=== PATIENT | female | born 1965 | race Two or more races ===

== ENCOUNTER 2020-08-06 01:31 | Emergency (ER) | payer OTHER, SELFPAY | END 2020-08-06 03:00 | disposition left against medical advice (07) | PROVIDERS: Emergency Provider Emergency Medicine; PCP Internal Medicine | DX: M79.676 Pain in unspecified toe(s) (principal) ==

== ENCOUNTER 2020-08-06 15:59 | Outpatient (REF) | payer OTHER, SELFPAY ==
--- NOTE | ~2020-08-06 | XR_ITS ---
EXAMINATION: XR FOOT, LEFT CLINICAL INFORMATION: Toe pain. COMPARISON: None TECHNIQUE: AP, lateral, and oblique views of the left foot. FINDINGS: There is no acute fracture or dislocation. The tarsal bones are normally aligned. Very small plantar and retrocalcaneal spurs are seen. There is mild soft tissue swelling. XR/XR foot LT 2V IMPRESSION: Very small degenerative calcaneal spurs and mild soft tissue swelling without acute osseous abnormality.
== END 2020-08-06 16:00 | disposition home or self-care (01) ==
LOC: HO.XRAY 15:59
PROVIDERS: PCP Internal Medicine; Visit Provider Family Medicine
DX: M79.675 Pain in left toe(s) (principal)
CPT/HCPCS: 73620

== ENCOUNTER 2020-08-13 13:20 | Outpatient (REF) | payer OTHER, SELFPAY ==
--- NOTE | ~2020-08-13 | XR_ITS ---
EXAMINATION: XR ABDOMEN KUB CLINICAL INDICATION: Abdominal pain COMPARISON: CT June 2013 TECHNIQUE: AP view of the abdomen. FINDINGS: The bowel gas pattern is normal. There is no evidence of free air. There is question of a 1.5 cm calcification in the right upper quadrant overlying the 11th rib. This is suggestive of a couple gallstone. No gallstone is seen on CT from 2013. Bony structures are unremarkable. XR/XR KUB IMPRESSION: Normal bowel gas pattern. Question gallstone.
[2020-08-13 14:41] LABS: Glucose Urine UA NEG (NEG); Leukocyte Esterase Urine TRACE (NEG); Nitrite Urine NEG (NEG); PH 8.5 (5.0-8.0); UACC Culture Trigger YES; Urine Blood NEG (NEG); Urine Ketones NEG (NEG); Urine Protein NEG (NEG-TRACE)
[2020-08-13 14:50] LABS: Appearance Urine CLOUDY; Color Urine YELLOW
[2020-08-13 15:09] LABS: Amorphous Sediment Urine 2+ /LPF; RBC Urine 0 /HPF (0)
[2020-08-19 12:02] LABS: Vitamin D 25-OH, D2 <4 ng/mL; Vitamin D 25-OH, D3 29 ng/mL; Vitamin D 25-OH, Total 29 ng/mL (30-100)
== END 2020-08-13 13:21 | disposition home or self-care (01) ==
LOC: HO.LAB 13:20
PROVIDERS: PCP Internal Medicine; Visit Provider Internal Medicine
DX: R10.9 Unspecified abdominal pain (principal); E55.9 Vitamin D deficiency, unspecified; R30.0 Dysuria
CPT/HCPCS: 36415; 74018; 81001; 81003; 82306; 87086

== ENCOUNTER 2020-11-29 05:20 | Emergency (ER) | payer OTHER, SELFPAY ==
[2020-11-29 05:25] VITALS: BP 149/83; PULSE 83; RESP 16; TEMP 36.4; O2SAT 99; BMI 30.8
[2020-11-29 06:12] LABS: Glucose Urine UA NEG (NEG); Leukocyte Esterase Urine 1+ (NEG); Nitrite Urine NEG (NEG); UACC Culture Trigger YES; Urine Blood 3+ (NEG); Urine Ketones NEG (NEG); Urine Protein 2+ MG/DL (NEG-TRACE)
[2020-11-29 06:15] LABS: Appearance Urine CLOUDY
[2020-11-29 06:16] LABS: Color Urine RED
[2020-11-29 06:17] LABS: Bacteria Urine 1+ /LPF; RBC Urine TNTC /HPF (0); Squamous Epithelial Cell Urine 1+ /LPF; UACC CULT YES
--- NOTE | 2020-11-29 06:19 | PC.NURSE ---
at bedside for primary eval.
--- NOTE | 2020-11-29 06:50 | PC.NURSE ---
Patient is ambulatory to the bathroom and back without difficulty. Pt rates lower abdominal pain 4/10 currently. No acute distress noted.
--- NOTE | 2020-11-29 07:25 | PC.NURSE ---
Dischrarge instructions given to patient who verbalized understanding and denies any questions. Pt is ambulatory to exit in no acute distress
--- NOTE | 2021-02-09 06:45 | ED.FEMALEGU ---
HPI - Female Genitourinary General Chief complaint: Urogenital-Female Stated complaint: Blood in urine Time Seen by Provider: 11/29/20 06:17 Related Data Previous Rx's Medication Instructions Recorded cholecalciferol (vitamin D3) 25 25 mcg PO DAILY 90 Days #90 cap 12/09/20 mcg (1,000 unit) capsule fluticasone propionate 50 1 spray INTRANASAL DAILY 30 Days 12/09/20 mcg/actuation nasal #16 g spray,suspension gabapentin 400 mg capsule 400 mg PO BID 30 Days #60 cap 12/09/20 gabapentin 600 mg tablet 600 mg PO BEDTIME 30 Days #30 tab 12/09/20 loratadine 10 mg tablet 10 mg PO DAILY 90 Days #90 tab 12/09/20 sennosides 8.6 mg tablet 17.2 mg PO DAILY 90 Days #180 tab 12/09/20 topiramate 50 mg tablet 50 mg PO BEDTIME 90 Days #90 tab 12/09/20 duloxetine 30 mg capsule,delayed 30 mg PO DAILY 90 Days #90 cap 12/11/20 release Allergies Allergy/AdvReac Type Severity Reaction Status Date / Time pregabalin Allergy Intermediate mood Verified 12/09/20 09:22 behavior, blurry vision, dizziness, insomnia sumatriptan Allergy Intermediate nausea Verified 12/09/20 09:22 [facility] Past Medical History Medical History (Updated 12/09/20 @ 10:32 by Sarah Ortiz MD) Bilateral flank pain Constipation by delayed colonic transit Cough Electrocution and nonfatal effects of electric current Fibromyalgia Hypovitaminosis D Macroscopic hematuria Migraine Obesity Skin lesion Surgical History History of carpal tunnel release History of section History of hysterectomy Family History Family History Father Prostate cancer Mother No problems noted. Social History Social History Housing: Apartment Alcohol intake: never Patient Tobacco Use Status: Never used Tobacco e-Cigarette/Vaping Use: Never Used Second Hand Smoke Exposure: Yes service: No Current occupational status: employed Physical Exam Vital Signs: Vital Signs: Last Vital Signs Temp 97.6 F 11/29/20 05:25 Pulse 83 11/29/20 05:25 Resp 16 11/29/20 05:25 BP 149/83 H 11/29/20 05:25 Pulse Ox 99 11/29/20 05:25 Body Mass Index 30.8 MDM - Female Genitourinary Lab Data Labs: Lab Results 11/29/20 Range/Units 05:46 Urine Color RED Urine Appearance CLOUDY Urine pH 6.0 (5.0-8.0) Ur Specific [place] 1.020 (1.005-1.025) Urine Protein 2+ H (NEG-TRACE) MG/DL Urine Glucose (UA) NEG (NEG) MG/DL Urine Ketones NEG (NEG) MG/DL Urine Blood 3+ H (NEG) Urine Nitrite NEG (NEG) Ur Leukocyte Esterase 1+ H (NEG) Urine RBC TNTC H (0) /HPF Urine WBC 5-9 H (0-4) /HPF Ur Squamous Epith Cells 1+ /LPF Urine Bacteria 1+ /LPF Discharge Plan Discharge Clinical Impression: UTI (urinary tract infection), Abdominal pain Patient Disposition: Home, Self-Care Instructions: Urinary Tract Infection in Women (ED) Additional Instructions: Your symptoms and urinalysis are consistent with a urine infection, most likely the infection is in your bladder at this time. Take Keflex (cephalexin) 500 mg pills, 1 pill 3 times a day for 7 days. Take Pyridium 200 mg pills, 1 pill 3 times a day as needed for painful urination. Take ibuprofen 200 mg pills, 3 pills every 6 hours as needed for pain. Take Tylenol (acetaminophen) 500 mg pills, 2 pills every 4 to 6 hours as needed for pain. Follow-up with your doctor in 2 days. Please return to the emergency department if your symptoms get worse or if you develop any symptoms that are concerning to you. Prescriptions: No Action duloxetine 30 mg capsule,delayed release(DR/EC) 30 mg PO DAILY 90 Days Qty: 90 RF: 1 cholecalciferol (vitamin D3) 25 mcg (1,000 unit) capsule 25 mcg PO DAILY 90 Days Qty: 90 RF: 3 fluticasone propionate 50 mcg/actuation spray,suspension 1 spray intranasal DAILY 30 Days Qty: 16 RF: 6 gabapentin 600 mg tablet 600 mg PO BEDTIME 30 Days Qty: 30 RF: 3 gabapentin 400 mg capsule 400 mg PO BID 30 Days Qty: 60 RF: 6 topiramate 50 mg tablet 50 mg PO BEDTIME 90 Days Qty: 90 RF: 3 sennosides 8.6 mg tablet 17.2 mg PO DAILY 90 Days Qty: 180 RF: 3 loratadine 10 mg tablet 10 mg PO DAILY 90 Days Qty: 90 RF: 1 Discharge Date/Time: 11/29/20 07:25
== END 2020-11-29 07:25 | disposition home or self-care (01) ==
PROVIDERS: Emergency Provider Emergency Medicine Emergency Medical Services; PCP Internal Medicine
DX: N39.0 Urinary tract infection, site not specified (principal)
CPT/HCPCS: 81001; 87086; 87088; 87186; 99283; 99284

== ENCOUNTER 2020-12-09 10:01 | Outpatient (REF) | payer OTHER, SELFPAY ==
--- NOTE | ~2020-12-09 | XR_ITS ---
EXAMINATION: XR CHEST CLINICAL INFORMATION: Cough COMPARISON: 12/02/2018 TECHNIQUE: 2 views of the chest were obtained. FINDINGS: No significant abnormality is noted involving the heart, lungs, mediastinum, bony thorax or soft tissues. XR/XR chest 2V IMPRESSION: Unremarkable examination.
[2020-12-09 11:49] LABS: Thyroid Stimulating Hormone 2.37 uIU/mL (0.32-4.0)
[2020-12-13 15:07] LABS: Vitamin D 25-OH, D2 <4 ng/mL; Vitamin D 25-OH, D3 31 ng/mL; Vitamin D 25-OH, Total 31 ng/mL (30-100)
== END 2020-12-09 10:02 | disposition home or self-care (01) ==
LOC: HO.LAB 10:01
PROVIDERS: PCP Internal Medicine; Visit Provider Internal Medicine
DX: R05 Cough (principal); E55.9 Vitamin D deficiency, unspecified; E66.9 Obesity, unspecified
CPT/HCPCS: 36415; 71046; 82306; 84443

== ENCOUNTER → 2021-02-14 13:08 | Outpatient (BNVA) | payer OTHER, SELFPAY | PROVIDERS: PCP Internal Medicine | DX: R31.0 Gross hematuria (principal); R39.15 Urgency of urination | CPT/HCPCS: 99202 ==

== ENCOUNTER 2021-03-17 12:36 | Outpatient (REF) | payer OTHER, SELFPAY ==
--- NOTE | ~2021-03-17 | US_ITS ---
EXAMINATION: US RETROPERITONEAL LIMITED (RENAL ONLY) CLINICAL INFORMATION: Unspecified abdominal pain. COMPARISON: X-ray abdomen KUB 08/13/2020. CT abdomen and pelvis 06/03/2013. TECHNIQUE: Real-time imaging of the kidneys. FINDINGS: RIGHT KIDNEY: 10.3 x 3.9 x 4.8 cm (SAG x AP x TRV). The kidney is normal in size, contour, and echogenicity. Renal cortical thickness is normal. No calculi or focal parenchymal lesions. No hydronephrosis. LEFT KIDNEY: 10.5 x 5.8 x 4.0 cm (SAG x AP x TRV). The kidney is normal in size, contour, and echogenicity. Renal cortical thickness is normal. No focal parenchymal lesions or hydronephrosis. There appears to be a small, 0.3 cm calculus in the upper pole (image 22 of 29). US/US renal BI IMPRESSION: * No acute sonographic abnormalities in either kidney. No hydronephrosis. * There appears to be a small, 0.3 cm calculus in the upper pole of left kidney.
== END 2021-03-17 12:37 | disposition home or self-care (01) ==
LOC: HO.US 12:36
PROVIDERS: Visit Provider Urology
DX: N20.0 Calculus of kidney (principal)
CPT/HCPCS: 76775

== ENCOUNTER → 2021-03-21 15:06 | Outpatient (BNVA) | payer OTHER, SELFPAY | PROVIDERS: PCP Internal Medicine | DX: K59.01 Slow transit constipation (principal); N20.0 Calculus of kidney; R39.15 Urgency of urination; R31.0 Gross hematuria | CPT/HCPCS: 99212 ==

== ENCOUNTER → 2021-06-20 11:15 | Outpatient (BNVA) | payer OTHER, SELFPAY | PROVIDERS: PCP Internal Medicine ==

== ENCOUNTER → 2021-10-24 11:21 | Outpatient (REF) | payer OTHER, SELFPAY ==
--- NOTE | ~2021-10-24 | XR_ITS ---
EXAMINATION: XR SHOULDER, LEFT CLINICAL INFORMATION: M25.512 - Pain in left shoulder COMPARISON: None TECHNIQUE: Left shoulder is imaged in 4 views. FINDINGS: No fracture, dislocation, destructive process. The glenohumeral joint is normal. The acromioclavicular alignment is normal. There are no visible rotator cuff calcifications. XR/XR shoulder LT min 2V IMPRESSION: Normal left shoulder.
--- NOTE | 2021-10-24 11:29 | ECG_ITS ---
Test Reason : R94.31 Blood Pressure : / mmHG Vent. Rate : 074 BPM Atrial Rate : 074 BPM P-R Int : 128 ms QRS Dur : 084 ms QT Int : 360 ms P-R-T Axes : 036 065 059 degrees QTc Int : 399 ms Normal sinus rhythm Minimal voltage criteria for LVH, may be normal variant ( Sokolow-Couch ) Borderline ECG When compared with ECG of 02-DEC-2018 14:46, No significant change was found Referred By: Sarah Ortiz Electronically Signed By:RICCARDO FALK
== END ==
LOC: HO.CARD 11:21
PROVIDERS: PCP Internal Medicine; Visit Provider Internal Medicine
DX: R94.31 Abnormal electrocardiogram [ECG] [EKG] (principal); M25.512 Pain in left shoulder
CPT/HCPCS: 73030; 93005

== ENCOUNTER 2021-11-08 10:20 | Outpatient (REF) | payer OTHER, SELFPAY ==
--- NOTE | ~2021-11-08 | US_ITS ---
EXAMINATION: US RETROPERITONEAL LIMITED (RENAL ONLY) CLINICAL INFORMATION: Calculus of kidney. COMPARISON: US retroperitoneal limited (renal only) 03/17/2021. CT abdomen and pelvis without contrast 06/03/2013. TECHNIQUE: Real-time imaging of the kidneys. FINDINGS: RIGHT KIDNEY: 10.5 x 4.4 x 4.9 cm (SAG x AP x TRV). The kidney is normal in size, contour, and echogenicity. Renal cortical thickness is normal. No calculi or focal parenchymal lesions. No hydronephrosis. LEFT KIDNEY: 11.0 x 6.1 x 4.9 cm (SAG x AP x TRV). The kidney is normal in size, contour, and echogenicity. Renal cortical thickness is normal. No calculi or focal parenchymal lesions. No hydronephrosis. ADDITIONAL FINDINGS: Incidentally noted cholelithiasis without evidence of acute cholecystitis. US/US renal BI IMPRESSION: Previously seen left upper pole renal stone is no longer appreciated sonographically. Cholelithiasis incidentally noted without findings to suggest acute cholecystitis.
== END 2021-11-08 10:21 | disposition home or self-care (01) ==
LOC: HO.US 10:20
DX: N20.0 Calculus of kidney (principal)
CPT/HCPCS: 76775

== ENCOUNTER → 2021-12-19 11:19 | Outpatient (BNVA) | payer OTHER, SELFPAY | PROVIDERS: PCP Internal Medicine | DX: N20.0 Calculus of kidney (principal); R39.15 Urgency of urination; N39.0 Urinary tract infection, site not specified; Z79.899 Other long term (current) drug therapy | CPT/HCPCS: 99212 ==

== ENCOUNTER 2022-01-09 13:54 | Outpatient (REF) | payer OTHER, SELFPAY ==
--- NOTE | ~2022-01-09 | US_ITS ---
EXAMINATION: US PELVIS CLINICAL INFORMATION: Pelvic and perineal pain COMPARISON: None TECHNIQUE: Ultrasound of the pelvis is performed using both transabdominal and transvaginal transducers along with Doppler. Transvaginal imaging is performed due to inadequate visualization transabdominally. FINDINGS: The uterus is not visualized due to surgical resection. Adnexa: Both ovaries are nonvisualized. There is no free fluid in the cul-de-sac. US/US pelvic and transvaginal IMPRESSION: Both ovaries are not visualized. The uterus has been removed. There is no adnexal mass or free fluid.
== END 2022-01-09 13:55 | disposition home or self-care (01) ==
LOC: HO.HMGCX 13:54
PROVIDERS: Visit Provider Nurse Practitioner Family
DX: R10.2 Pelvic and perineal pain (principal)
CPT/HCPCS: 76830; 76856

== ENCOUNTER 2022-09-04 10:58 | Outpatient (REF) | payer OTHER, SELFPAY ==
[2022-09-04 13:34] LABS: Alanine Aminotransferase 18 U/L (0-31); Albumin Level 4.1 g/dL (3.5-5.0); Alkaline Phosphatase 88 U/L (39-117); Anion Gap 12 (12-20); Aspartate Amino Transferase 21 U/L (5-31); Bilirubin Total 0.4 mg/dL (0.0-1.0); Blood Urea Nitrogen 16 mg/dL (9-16); Calcium 9.2 mg/dL (8.4-10.2); Carbon Dioxide 28 mmol/L (22-29); Chloride 108 mmol/L (96-108); Cholesterol 192 mg/dL; Estimated Glomerular Filt Rate > 60; Glucose Fasting 82 mg/dL (60-99); HDL Cholesterol 58 mg/dL; LDL Cholesterol Calculated 111 mg/dl; Potassium 4.6 mmol/L (3.3-5.1); Sodium 143 mmol/L (135-145); Total Protein 6.8 g/dL (6.5-8.0); Triglycerides 119 mg/dL
[2022-09-04 13:47] LABS: TSH reflex Free T4 2.12 uIU/mL (0.32-4.0); Vitamin D 25-OH Total 18.4 ng/mL (>30)
== END 2022-09-04 10:59 | disposition home or self-care (01) ==
LOC: HO.LAB 10:58
PROVIDERS: PCP Nurse Practitioner Family; Visit Provider Nurse Practitioner Family
DX: G43.909 Migraine, unspecified, not intractable, without status migrainosus (principal); F33.0 Major depressive disorder, recurrent, mild; M79.7 Fibromyalgia
CPT/HCPCS: 36415; 80053; 80061; 82306; 84443

== ENCOUNTER 2022-12-01 12:40 | Outpatient (REF) | payer OTHER, SELFPAY ==
--- NOTE | ~2022-12-01 | MM_ITS ---
EXAMINATION: BONE DENSITOMETRY CLINICAL INDICATION: Menopause. COMPARISON: None (current study represents initial baseline exam). TECHNIQUE: Using a [employer] DXA System (software version: 13.1) manufactured by [employer], dual-energy x-ray absorptiometry was performed of the lumbar spine and left hip. The images are of good technical quality. Summary results are attached. FINDINGS: AP SPINE L1-L4: BMD 1.024 g/cm2, Z-score -0.7, T-score -1.3, osteopenia. LEFT FEMUR, NECK: BMD 0.847 g/cm2, Z-score -0.5, T-score -1.4, osteopenia. LEFT FEMUR, TOTAL: BMD 0.923 g/cm2, Z-score -0.2, T-score -0.7, normal. IDENTIFIED RISK FACTORS: Early menopause, hysterectomy, secondary osteoporosis, anticonvulsant. HISTORY OF FRACTURE: None listed. MEDICATIONS: Vitamin D. MM/XR DEXA axial skeleton IMPRESSION: 1. DIAGNOSIS: Osteopenia based on the lowest T-score value of -1.4 in the femoral neck applying World Health Organization criteria. 2. 10-YEAR FRACTURE RISK PREDICTION, FRAX: Major osteoporotic fracture (clinical spine, forearm, hip or shoulder) 3.6%. Hip fracture 0.3%. 3. Treatment Recommendations: NOF guidelines recommend consideration for treatment in postmenopausal women and men age 50 and older presenting with the following: -A hip or vertebral (clinical or morphometric) fracture. -T-score less than or equal to -2.5 at the femoral neck or spine after appropriate evaluation to exclude secondary causes. -Low bone mass at the hip or spine and a 10-year fracture probability by FRAX of greater than or equal to 3% for hip fracture or greater than or equal to 20% for major osteoporotic fracture based on the [place] adapted WHO algorithm. 4. Other Recommendations: All treatment decisions require clinical judgment and consideration of individual patient factors, including patient preferences, comorbidities, previous drug use, risk factors not captured in the FRAX model (e.g. frailty, falls, vitamin D deficiency, increased bone turnover, interval significant decline in bone density) and possible under or overestimation of fracture risk by FRAX. Additional medical evaluation for secondary cause of low bone mineral density may be appropriate. FUTURE SCAN RECOMMENDATION: People with diagnosed cases of osteoporosis or at high risk for fracture should have regular bone mineral density tests. For patients eligible for Medicare, routine testing is allowed once every 2 years. The testing frequency can be increased to one year for patients who have rapidly progressing disease, those who are receiving or discontinuing medical therapy to restore bone mass, or have additional risk factors.
--- NOTE | ~2022-12-01 | MM_ITS ---
EXAMINATION: MM SCREENING DIGITAL BREAST TOMOSYNTHESIS, BILATERAL CLINICAL INFORMATION: Screening. Asymptomatic. The lifetime risk of breast cancer based on the Tyrer-Cuzick Model is 5%. COMPARISON: Mammography: 07/29/2018, 07/09/2017, 07/22/2015 TECHNIQUE: Digital breast tomosynthesis is performed in both the craniocaudal and mediolateral oblique views along with computer-aided detection (CAD). Synthesized 2D images are generated from the tomosynthesis. FINDINGS: There are scattered areas of fibroglandular density (ACR BI-RADS breast composition Category b). There are no significant masses, abnormal calcifications, or other abnormalities. Parenchymal pattern is similar to prior studies. There is no developing density or architectural abnormality. The axilla and skin contours are unremarkable. No significant changes. MM/MM tomosynthesis screening BI IMPRESSION: No mammographic evidence of malignancy. ASSESSMENT: BI-RADS 1: Negative RECOMMENDATION: Routine annual mammography screening. This patient's information was entered into a reminder system with a target due date for their next mammogram.
== END 2022-12-01 12:41 | disposition home or self-care (01) ==
LOC: HO.MAMMO 12:40
PROVIDERS: PCP Internal Medicine; Visit Provider Internal Medicine
DX: Z12.31 Encounter for screening mammogram for malignant neoplasm of breast (principal); Z13.820 Encounter for screening for osteoporosis; Z78.0 Asymptomatic menopausal state
CPT/HCPCS: 77063; 77067; 77080

== ENCOUNTER 2022-12-07 14:55 | Outpatient (REF) | payer OTHER, SELFPAY ==
--- NOTE | ~2022-12-07 | US_ITS ---
EXAMINATION: US RETROPERITONEAL LIMITED (RENAL ONLY) CLINICAL INFORMATION: Gross hematuria. COMPARISON: Ultrasound retroperitoneal limited (renal only) 11/08/2021 and 03/17/2021. X-ray abdomen KUB 08/13/2020. CT abdomen and pelvis without contrast 06/03/2013. TECHNIQUE: Real-time imaging of the kidneys. FINDINGS: RIGHT KIDNEY: 10.5 x 4.7 x 5.0 cm (SAG x AP x TRV). The kidney is normal in size, contour, and echogenicity. Renal cortical thickness is normal. No calculi or focal parenchymal lesions. No hydronephrosis. LEFT KIDNEY: 10.2 x 5.8 x 5.0 cm (SAG x AP x TRV). The kidney is normal in size, contour, and echogenicity. Renal cortical thickness is normal. No calculi or focal parenchymal lesions. No hydronephrosis. US/US renal BI IMPRESSION: Unremarkable examination.
== END 2022-12-07 14:56 | disposition home or self-care (01) ==
LOC: HO.US 14:55
PROVIDERS: PCP Internal Medicine; Visit Provider Nurse Practitioner Family
DX: R10.9 Unspecified abdominal pain (principal); R31.0 Gross hematuria
CPT/HCPCS: 76775

== ENCOUNTER → 2022-12-19 11:07 | Outpatient (BNVA) | payer OTHER, SELFPAY | PROVIDERS: PCP Internal Medicine; Visit Provider Nurse Practitioner Family | DX: R39.15 Urgency of urination (principal); N20.0 Calculus of kidney | CPT/HCPCS: 51798; 99212 ==

== ENCOUNTER 2023-03-12 08:02 | Outpatient (AMB) | payer OTHER, SELFPAY ==
--- NOTE | 2023-03-12 08:15 | A.OFFPC_ITS ---
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 Required: No Accompanied by: Self / Same As Patient Allergies pregabalin Allergy (Intermediate, Verified 03/12/23 08:31) mood behavior, blurry vision, dizziness, insomnia sumatriptan Allergy (Intermediate, Verified 03/12/23 08:31) nausea duloxetine Adverse Reaction (Intermediate, Verified 03/12/23 08:31) sleepiness Medication List - Last Reconciled 03/12/23 by Sarah Ortiz MD amitriptyline 25 mg PO BEDTIME 90 days calcium carbonate 600 mg PO BID 90 days cholecalciferol (vitamin D3) 25 mcg PO DAILY 90 days cyclobenzaprine 5 mg PO TID PRN estradiol 0.01%(0.1mg/gram) (Estrace) pea sized amount per urethra daily; fluticasone propionate 50 mcg/actuation 1 spray intranasal DAILY 30 days gabapentin 400 mg PO BID 30 days gabapentin 600 mg PO BEDTIME 90 days lidocaine-prilocaine 2.5-2.5 % grams topical loratadine 10 mg PO DAILY 90 days mirabegron ER (Myrbetriq) 25 mg PO DAILY 30 days naproxen 500 mg PO BID sennosides 17.2 mg (2 x 8.6 mg) PO DAILY 90 days topiramate 50 mg PO BEDTIME Tobacco use date assessed: 09/07/22 Dental Screening Dental Screen Date: 03/12/23 Did you have a dental visit in the last 12 months?: Yes Did you have a dental problem in the last 6 months where you did not have access to dental care?: No Was dental information given to patient?: Patient has dentist HPI HPI Comments History of Present Illness Details This is a 57-year-old female with fibromyalgia, migraines, mild major depression and osteopenia that comes today for follow-up on her conditions. She did run out of gabapentin 400 mg twice a day and has more pain. Migraines have been well control with Topamax as migraine prophylaxis. She does not use amitriptyline every day and I recommend to use it every day at bedtime. She still has trouble sleeping. Had bone density November 2022 showing osteopenia and calcium with vitamin-D was started. She has some constipation secondary to calcium and I advised high-fiber diet. No chest pain or shortness of breath. [facility] Medical History (Updated 03/12/23 @ 09:15 by Sarah Ortiz MD) Left shoulder pain Mild recurrent major depression Class 1 obesity with body mass index (BMI) of 31.0 to 31.9 in adult Pelvic pain in female Urinary urgency Constipation by delayed colonic transit Macroscopic hematuria Cough Obesity Electrocution and nonfatal effects of electric current Fibromyalgia Skin lesion Bilateral flank pain Migraine Hypovitaminosis D Surgical History History of carpal tunnel release History of section History of hysterectomy Family History Father Prostate cancer Mother No problems noted. Social History Housing: Apartment Alcohol intake: never Patient Tobacco Use Status: Never used Tobacco e-Cigarette/Vaping Use: Never Used Second Hand Smoke Exposure: Yes service: No Current occupational status: employed Current occupational exposures/hazards: No Cognitive needs: No Hearing needs: No Vision needs: Yes Questionnaire Thrive Questionnaire Date Thrive assessed: 09/07/22 KUMAR-7 AMB Questionnaire KUMAR-7 Date KUMAR - 7 assessed: 10/24/21 Source: Developed by Drs. Wander Arnold, Samara Mayer, Rudolph Lovelace and colleagues, with an educational marsha from [employer]. Review of Systems Const All systems reviewed & are unremarkable except as noted in HPI and below Eyes Reports no additional complaints, Denies change in vision and Denies other visual disturbances Card Denies chest pain at rest, Denies chest pain with activity, Denies edema, Denies irregular heart rhythm, Denies claudication, Denies dyspnea, Denies dyspnea on exertion, Denies orthopnea, Denies paroxysmal nocturnal dyspnea and Denies slow heart rate Resp Denies cough, Denies dyspnea and Denies dyspnea on exertion GI Denies abdominal pain, Denies change in bowel habits, Denies excessive flatus, Denies nausea and Denies vomiting Denies urinary incontinence, Denies urinary hesitancy and Denies urinary urgency Musc Denies abnormal gait, Denies atrophy, Denies deformity and Denies limited range of motion Skin/Breast Denies bleeding lesions, Denies changing lesions and Denies rash Neuro Denies abnormal gait and Denies lack of coordination Physical exam (Primary Care) Vital Signs: Last Vital Signs BP 120/70 03/12/23 08:16 BMI result Body Mass Index 29.2 Tobacco/Smoking Status: Tobacco use Status Tobacco use date assessed 09/07/22 03/12/23 08:22 Patient Tobacco Use Status Never used Tobacco 03/12/23 08:22 e-Cigarette/Vaping Use Never Used 03/12/23 08:22 Thrive Assessment: Date of Thrive Assessment Date Thrive assessed 09/07/22 03/12/23 08:22 Eyes General: appearance normal, both eyes and all related structures Eyelids: Yes eyelids normal Conjunctivae: conjunctivae normal Neck Neck: Yes normal visual inspection and Yes supple Resp Effort & Inspection: normal respiratory effort Auscultation: clear to auscultation bilaterally Cardio Jugular venous distension: no JVD Rate: regular rate Rhythm: regular rhythm Heart sounds: S1 normal heart sound present and S2 normal heart sound present Extrem General: Yes full ROM Assessment and Plan Assessment & Plan (1) Fibromyalgia: Code(s): M79.7 - Fibromyalgia Plan: Continue gabapentin 400 mg at am and 600 at bedtime. (2) Migraine: Code(s): G43.909 - Migraine, unspecified, not intractable, without status migrainosus Qualifiers: Migraine type: unspecified Status migrainosus presence: without status migrainosus Intractability: not intractable Qualified Code(s): G43.909 - Migraine, unspecified, not intractable, without status migrainosus Plan: Continue Topamax at bedtime. (3) Osteopenia: Code(s): M85.80 - Other specified disorders of bone density and structure, unspecified site Plan: Continue calcium with vitamin-D. (4) Mild recurrent major depression: Code(s): F33.0 - Major depressive disorder, recurrent, mild Plan: Be compliant with amitriptyline. Orders: Orders Lipid Panel 6 Months E78.5 - Hyperlipidemia, unspecified, Z00.00 - Encounter for general adult medical examination without abnormal findings Comprehensive [place]. Panel Fast 6 Months Z00.00 - Encounter for general adult medical examination without abnormal findings Vitamin D 25-OH Total 6 Months E55.9 - Vitamin D deficiency, unspecified Medications: Changed From gabapentin 400 mg PO BID 30 days 60 caps 6RF To gabapentin 400 mg PO DAILY 30 caps 6RF 30 days Refilled gabapentin 400 mg PO BID 30 days 60 caps 6RF Coding Level of Care Code Est Pt Level 4 (30985) Diagnoses Fibromyalgia M79.7 Migraine without status migrainosus, not intractable, unspecified migraine type G43.909 Migraine type: unspecified Status migrainosus presence: without status migrainosus Intractability: not intractable Osteopenia M85.80 Mild recurrent major depression F33.0 Time Spent (min) 23
[2023-03-12 08:16] VITALS: BP 120/70; BMI 29.2
== END 2023-03-12 08:42 | disposition home or self-care (01) ==
PROVIDERS: PCP Internal Medicine; Visit Provider Internal Medicine
DX: M79.7 Fibromyalgia (principal); G43.909 Migraine, unspecified, not intractable, without status migrainosus; M85.80 Other specified disorders of bone density and structure, unspecified site; F33.0 Major depressive disorder, recurrent, mild
CPT/HCPCS: 99214

== ENCOUNTER 2023-09-10 07:26 | Outpatient (AMB) | payer OTHER, SELFPAY ==
[2023-09-10 07:32] VITALS: BP 122/80; BMI 29.2
--- NOTE | 2023-09-10 07:32 | A.OFFPC_ITS ---
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 Required: No Accompanied by: Self / Same As Patient Allergies pregabalin Allergy (Intermediate, Verified 09/10/23 07:46) mood behavior, blurry vision, dizziness, insomnia sumatriptan Allergy (Intermediate, Verified 09/10/23 07:46) nausea duloxetine Adverse Reaction (Intermediate, Verified 09/10/23 07:46) sleepiness Medication List - Last Reconciled 09/10/23 by Sarah Ortiz MD amitriptyline 25 mg PO BEDTIME 90 days cholecalciferol (vitamin D3) 25 mcg PO DAILY 90 days estradiol 0.01%(0.1mg/gram) (Estrace) pea sized amount per urethra daily; fluticasone propionate 50 mcg/actuation 1 spray intranasal DAILY 30 days gabapentin 400 mg PO DAILY 30 days gabapentin 600 mg PO BEDTIME 90 days loratadine 10 mg PO DAILY 90 days sennosides 17.2 mg (2 x 8.6 mg) PO DAILY 90 days topiramate 50 mg PO BEDTIME Tobacco use date assessed: 09/10/23 Dental Screening Dental Screen Date: 09/10/23 Did you have a dental visit in the last 12 months?: No Did you have a dental problem in the last 6 months where you did not have access to dental care?: No Was dental information given to patient?: Patient has dentist HPI HPI Comments History of Present Illness Details This is a 57-year-old female with mild recurrent major depression that comes for her physical exam. She feels very tired during the day and would like amitriptyline to be decreased. Mild major depression has not significantly changed but she is compliant with her medications. Last mammogram was November 2022. Last bone density was 2022 showing osteopenia. Has colonoscopy was 2013 and will be referred to another colonoscopy. No need for Pap smear due to hysterectomy for benign reasons. No chest pain or shortness of breath. [facility] Medical History Left shoulder pain Mild recurrent major depression Class 1 obesity with body mass index (BMI) of 31.0 to 31.9 in adult Pelvic pain in female Urinary urgency Constipation by delayed colonic transit Macroscopic hematuria Cough Obesity Electrocution and nonfatal effects of electric current Fibromyalgia Skin lesion Bilateral flank pain Migraine Hypovitaminosis D Surgical History History of carpal tunnel release History of section History of hysterectomy Family History Father Prostate cancer Mother No problems noted. Social History Housing: Apartment Alcohol intake: never Patient Tobacco Use Status: Never used Tobacco e-Cigarette/Vaping Use: Never Used Second Hand Smoke Exposure: Yes service: No Current occupational status: employed Current occupational exposures/hazards: No Cognitive needs: No Hearing needs: No Vision needs: Yes Questionnaire PHQ-9 Over the last 2 weeks, how often have you been bothered by any of the following problems? 1. Little interest or pleasure in doing things: several days 2. Feeling down, depressed, or hopeless: more than half the days 3. Trouble falling or staying asleep, or sleeping too much: nearly every day 4. Feeling tired or having little energy: nearly every day 5. Poor appetite or overeating: several days 6. Feeling bad about yourself - or that you are a failure or have let yourself or your family down: not at all 7. Trouble concentrating on things, such as reading the newspaper or watching television: several days 8. Moving or speaking so slowly that other people could have noticed. Or the opposite - being so fidgety or restless that you have been moving around a lot more than usual: more than half the days 9. Thoughts that you would be better off or of hurting yourself in some way: not at all Total score: 13 Depression Screening Interpretation: Positive Depression Screening Follow-up: Existing condition and In treatment Depression Screening Done: Yes 47003 - PHQ-9 Billing: Yes Source: Developed by Drs. Wander Arnold, Samara Mayer, Rudolph Lovelace and colleagues, with an educational marsha from [employer]. Thrive Questionnaire Date Thrive assessed: 09/10/23 I am a: Patient What is your living situation today?: I have a steady place to live Within the past 12 months, did the food you bought not last and you didn't have the money to get more?: Never true Within the past 12 months, did you worry whether your food would run out before you got money to buy more?: Never true Do you have trouble paying for medicines?: No Do you have trouble getting transportation to medical appointments?: No Do you have trouble paying your heating and electricity bill?: No Do you have trouble taking care of your child, family member or friend?: No Do you have trouble with day-to-day activities such as bathing, preparing meals, shopping, managing finances, etc.?: No Are you currently unemployed and looking for a job?: No Are you interested in more education?: No Please select the resources that you would like help with: None Currently or been in a relationship where the following occur: no concerns reported THRIVE Score: 0 AUDIT C Alcohol Use Questionnaire (AUDIT-C) 1. How often do you have a drink containing alcohol?: Never Total Score: 0 KUMAR-7 AMB Questionnaire KUMAR-7 Date KUMAR - 7 assessed: 09/10/23 Feeling nervous, anxious, or on edge: 2 = More than half the days Not being able to stop or control worryin = Not at all Worrying too much about different things: 2 = More than half the days Trouble relaxin = Several days Being so restless that it is hard to sit still: 0 = Not at all Becoming easily annoyed or irritable: 0 = Not at all Feeling afraid as if something awful might happen: 0 = Not at all Total KUMAR-7 score (0-4 normal; 5-9 mild; 10-14 moderate; 15-21 severe): 5 Source: Developed by Drs. Wander Arnold, Samara Mayer, Rudolph Lovelace and colleagues, with an educational marsha from [employer]. KUMAR-7 Assessment Billing KUMAR-7 Assessment Tool: KUMAR-7 Assessment 24671 Review of Systems Const All systems reviewed & are unremarkable except as noted in HPI and below Eyes Reports no additional complaints, Denies change in vision and Denies other visual disturbances Card Denies chest pain at rest, Denies chest pain with activity, Denies edema, Denies irregular heart rhythm, Denies claudication, Denies dyspnea, Denies dyspnea on exertion, Denies orthopnea, Denies paroxysmal nocturnal dyspnea and Denies slow heart rate Resp Denies cough, Denies dyspnea and Denies dyspnea on exertion GI Denies abdominal pain, Denies change in bowel habits, Denies excessive flatus, Denies nausea and Denies vomiting Denies urinary incontinence, Denies urinary hesitancy and Denies urinary urgency Musc Denies atrophy, Denies deformity and Denies limited range of motion Physical exam (Primary Care) Vital Signs: Last Vital Signs BP 122/80 09/10/23 07:32 BMI result Body Mass Index 29.2 Tobacco/Smoking Status: Tobacco use Status Tobacco use date assessed 09/10/23 09/10/23 07:42 Patient Tobacco Use Status Never used Tobacco 09/10/23 07:42 e-Cigarette/Vaping Use Never Used 09/10/23 07:42 PHQ-9: PHQ-9 Score PHQ-9: Total score 13 09/10/23 07:54 Depression Screening Interpretation: Positive Depression Screening Follow-up: Existing condition and In treatment Thrive Assessment: Date of Thrive Assessment Date Thrive assessed 09/10/23 09/10/23 07:42 Currently or been in a relationship where the following occur: no concerns r eported Const Orientation/consciousness: patient oriented x3 HENNV Head: Yes normal to inspection, Yes normocephalic and Yes atraumatic Ears: external ears normal Eyes General: appearance normal, both eyes and all related structures Eyelids: Yes eyelids normal Conjunctivae: conjunctivae normal Neck Neck: Yes normal visual inspection and Yes supple Resp Effort & Inspection: normal respiratory effort Auscultation: clear to auscultation bilaterally Cardio Jugular venous distension: no JVD Rate: regular rate Rhythm: regular rhythm Heart sounds: S1 normal heart sound present and S2 normal heart sound present GI Inspection: Yes normal to inspection Palpation (GI): Soft to palpation and nontender Auscultation: normal bowel sounds Skin General skin exam: no rashes or lesions noted Neuro General: patient oriented x3 and no focal motor deficits Extrem General: Yes full ROM Psych Appearance: grossly normal Assessment and Plan Assessment & Plan (1) Physical exam: Code(s): Z00.00 - Encounter for general adult medical examination without abnormal findings Plan: Repeat in a year. (2) Mild recurrent major depression: Code(s): F33.0 - Major depressive disorder, recurrent, mild Plan: Decrease amitriptyline to 10 mg once a day. Orders: Orders Thyroid Stimulating Hormone Today E66.9 - Obesity, unspecified, Z68.31 - Body mass index [BMI] 31.0-31.9, adult Referrals Open Access Screening Colonoscopy Referral Z12.11 - Encounter for screening for malignant neoplasm of colon Medications: New amitriptyline 10 mg PO BEDTIME 90 tabs 1RF 90 days F33.0 - Major depressive disorder, recurrent, mild Refilled estradiol 0.01%(0.1mg/gram) (Estrace) pea sized amount per urethra daily; 42.5 grams 1RF N39.0 - Urinary tract infection, site not specified Discontinued amitriptyline Discontinued Reason: Duplicate 25 mg PO BEDTIME 90 days 90 tabs 0RF Coding Level of Care Code Est Pt Prev Care 40-64y(89457) Diagnoses Physical exam Z00.00 Mild recurrent major depression F33.0 Additional Codes KUMAR-7 Assessment Billing - KUMAR-7 Assessment Tool: KUMAR-7 Assessment 60412 ([id number]) Time Spent (min) 31
== END 2023-09-10 08:00 | disposition home or self-care (01) ==
PROVIDERS: Visit Provider Internal Medicine
DX: Z00.00 Encounter for general adult medical examination without abnormal findings (principal); F33.0 Major depressive disorder, recurrent, mild
CPT/HCPCS: 99396

== ENCOUNTER 2023-10-09 10:30 | Outpatient (RCR) | payer OTHER, SELFPAY ==
--- NOTE | 2023-09-25 15:54 | MHC.OT.EP ---
[address] [phone] Occupational Therapy Plan of Care Patient Name: Leanne Lira Date of Evaluation: 09/25/23 Diagnosis: bilateral hand pain Pain Location: 2-6 Right radial wrist > left Right sharp. Left ache Pain Score: 6 Pain Scale Used: Numeric (0 - 10) Aggravating Factors: R 3 at home .. 6 at work. Lifting heavy, mopping at work . 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 gardening with her time off work Today she presents with S+S of mild thumb basal joint pain and mild FCR strain aggravated by some home and work tasks Leanne will benefit from OT to improve pain, strength and bilateral hand function with moderate heavy tasks Frequency and Duration: The patient will be seen 2 x wk x 3 wks Short Term Goals: Demo independence with joint protection techniques for bilateral hands and wrists with housekeeping tasks [place] with HEP Tolerate isometric wrist and hand strengthening Decrease complaint of pain to occasional Quick DASH score to < 15 with activity modifications as needed 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 Thank you once again for your referral.
--- NOTE | 2023-11-27 13:57 | MHC.OT.DC ---
[address] [phone] F: [phone] Occupational Therapy Discharge Note Patient Name: Leanne Lira Provider: Sarah Ortiz Diagnosis: bilateral hand pain Date of Surgery: Date of Evaluation: 09/25/23 Date of Discharge: Treatments to Date: 3 Cancellations to Date: No Shows to Date: Discharge Status: Visit Non-compliance Discharge Summary: Patient reported her hands feel better reporting a 4/10 pain and stated she is performing her HEP daily which are helping, her program was advanced by adding lumbrical stretches. She tolerated treatment well with no report of increased pain or discomfort. Electronically Signed By: FLAVIA Mitchell/Carli, CLT Reviewed/agree with student documentation: Therapist: Please Sign and return to therapist, thank you for your referral.
== END 2023-11-27 13:58 | disposition home or self-care (01) ==
LOC: HO.OT 10:30
PROVIDERS: PCP Internal Medicine; Visit Provider Internal Medicine
DX: M79.641 Pain in right hand (principal); M79.642 Pain in left hand
CPT/HCPCS: 97110; 97166

== ENCOUNTER 2024-01-01 10:02 | Outpatient (REF) | payer OTHER, SELFPAY | END 2024-01-01 10:03 | disposition home or self-care (01) | LOC: HO.MAMMO 10:02 | PROVIDERS: PCP Internal Medicine; Visit Provider Internal Medicine | DX: Z12.31 Encounter for screening mammogram for malignant neoplasm of breast (principal) | CPT/HCPCS: 77063; 77067 ==

== ENCOUNTER → 2024-01-01 10:15 | Outpatient (BNV) | payer OTHER, SELFPAY | PROVIDERS: PCP Internal Medicine; Visit Provider Radiology Diagnostic Radiology | DX: Z12.31 Encounter for screening mammogram for malignant neoplasm of breast (principal) | CPT/HCPCS: 77063; 77067 ==

== ENCOUNTER 2024-03-01 07:43 | Outpatient (REF) | payer OTHER, SELFPAY ==
[2024-03-01 09:41] LABS: Alanine Aminotransferase 15 U/L (0-31); Alkaline Phosphatase 86 U/L (39-117); Anion Gap 9 (12-20); Aspartate Amino Transferase 20 U/L (5-31); Bilirubin Total 0.3 mg/dL (0.0-1.0); Blood Urea Nitrogen 14 mg/dL (9-16); Calcium 9.6 mg/dL (8.4-10.2); Carbon Dioxide 31 mmol/L (22-29); Chloride 107 mmol/L (96-108); Cholesterol 168 mg/dL (<200); Estimated Glomerular Filt Rate > 60; Glucose Fasting 90 mg/dL (60-99); HDL Cholesterol 54 mg/dL (>40); LDL Cholesterol Calculated 97 mg/dL (<100); Potassium 3.7 mmol/L (3.3-5.1); Sodium 143 mmol/L (135-145); Total Protein 6.7 g/dL (6.5-8.0); Triglycerides 87 mg/dL (<150)
[2024-03-01 09:57] LABS: Thyroid Stimulating Hormone 4.58 uIU/mL (0.32-4.0); Vitamin D 25-OH Total 35.8 ng/mL (>30)
== END 2024-03-01 07:44 | disposition home or self-care (01) ==
LOC: HO.LAB 07:43
PROVIDERS: PCP Internal Medicine; Visit Provider Internal Medicine
DX: Z00.00 Encounter for general adult medical examination without abnormal findings (principal); E78.5 Hyperlipidemia, unspecified; E55.9 Vitamin D deficiency, unspecified; E66.9 Obesity, unspecified; Z68.31 Body mass index [BMI] 31.0-31.9, adult
CPT/HCPCS: 36415; 80053; 80061; 82306; 84443

== ENCOUNTER 2024-03-13 09:51 | Outpatient (AMB) | payer OTHER, SELFPAY ==
[2024-03-13 10:02] VITALS: BP 126/84; BMI 28.0
--- NOTE | 2024-03-13 10:02 | MHC.PC.OV ---
Vital Signs 03/13/24 10:02 Height 5 ft 3 in Weight 158 lb BMI 28.0 BP 126/84 Blood Pressure Location Lt brachial Position Sitting Intake Visit Reasons: depression,migraines Intake Note: Patient here for a follow up depression, migraines, fibromyalgia Blend Technician Required: No Accompanied by: Self / Same As Patient Allergies pregabalin Allergy (Intermediate, Verified 03/13/24 10:18) mood behavior, blurry vision, dizziness, insomnia sumatriptan Allergy (Intermediate, Verified 03/13/24 10:18) nausea duloxetine Adverse Reaction (Intermediate, Verified 03/13/24 10:18) sleepiness Medication List - Last Reconciled 03/13/24 by Sarah Ortiz MD amitriptyline 10 mg PO BEDTIME 90 days cholecalciferol (vitamin D3) 25 mcg PO DAILY 90 days estradiol 0.01%(0.1mg/gram) (Estrace) pea sized amount per urethra daily; fluticasone propionate 50 mcg/actuation 1 spray intranasal DAILY 30 days gabapentin 400 mg PO DAILY 30 days gabapentin 600 mg PO BEDTIME 90 days loratadine 10 mg PO DAILY 90 days sennosides 17.2 mg (2 x 8.6 mg) PO DAILY 90 days topiramate 50 mg PO BEDTIME Tobacco use date assessed: 09/10/23 Dental Screening Dental Screen Date: 09/10/23 HPI HPI Comments History of Present Illness Details This is a 58-year-old female with fibromyalgia, migraines and mild recurrent major depression that comes today complaining of urinary incontinence and would like to restart seen Urology. Also has some muscle cramps and is having more migraines but admits not being completely compliant with Topamax because it makes her sleepy. I will decrease Topamax from 50 mg to 25 mg. Will add magnesium and patient is aware that can cause diarrhea and sleepiness. Has not had gabapentin for her fibromyalgia and will be refilled. Depression stable with amitriptyline. Labs were discussed and has elevated TSH that will be repeated in 2 months. [facility] History (Updated 03/13/24 @ 10:29 by Sarah Ortiz MD) Left shoulder pain Mild recurrent major depression Class 1 obesity with body mass index (BMI) of 31.0 to 31.9 in adult Pelvic pain in female Urinary urgency Constipation by delayed colonic transit Macroscopic hematuria Cough Obesity Electrocution and nonfatal effects of electric current Fibromyalgia Skin lesion Bilateral flank pain Migraine Hypovitaminosis D Surgical History History of carpal tunnel release History of section History of hysterectomy Family History Father Prostate cancer Mother No problems noted. Social History Housing: Apartment Alcohol intake: never Patient Tobacco Use Status: Never used Tobacco e-Cigarette/Vaping Use: Never Used Second Hand Smoke Exposure: Yes service: No Current occupational status: employed Current occupational exposures/hazards: No Cognitive needs: No Hearing needs: No Vision needs: Yes Questionnaire Thrive Questionnaire Date Thrive assessed: 09/10/23 KUMAR-7 AMB Questionnaire KUMAR-7 Date KUMAR - 7 assessed: 09/10/23 Source: Developed by Drs. Wander Arnlod, Samara Mayer, Rudolph Lovelace and colleagues, with an educational marsha from [employer]. Review of Systems Const All systems reviewed & are unremarkable except as noted in HPI and below Card Denies chest pain at rest, Denies chest pain with activity, Denies edema, Denies irregular heart rhythm, Denies claudication, Denies dyspnea, Denies dyspnea on exertion, Denies orthopnea, Denies paroxysmal nocturnal dyspnea and Denies slow heart rate Resp Denies cough, Denies dyspnea and Denies dyspnea on exertion GI Denies abdominal pain, Denies change in bowel habits, Denies excessive flatus, Denies nausea and Denies vomiting Reports urinary incontinence, Denies urinary hesitancy and Denies urinary urgency Musc Denies atrophy, Denies deformity and Denies limited range of motion Skin/Breast Denies bleeding lesions, Denies changing lesions and Denies rash Physical exam (Primary Care) Vital Signs: Last Vital Signs BP 126/84 03/13/24 10:02 BMI result Body Mass Index 28.0 Tobacco/Smoking Status: Tobacco use Status Tobacco use date assessed 09/10/23 03/13/24 10:05 Patient Tobacco Use Status Never used Tobacco 03/13/24 10:05 e-Cigarette/Vaping Use Never Used 03/13/24 10:05 Thrive Assessment: Date of Thrive Assessment Date Thrive assessed 09/10/23 03/13/24 10:05 Resp Effort & Inspection: normal respiratory effort Auscultation: clear to auscultation bilaterally Cardio Jugular venous distension: no JVD Rate: regular rate Rhythm: regular rhythm Heart sounds: S1 normal heart sound present and S2 normal heart sound present Extrem General: Yes full ROM Assessment and Plan Assessment & Plan (1) Mild recurrent major depression: Code(s): F33.0 - Major depressive disorder, recurrent, mild Plan: Continue amitriptyline. (2) Elevated TSH: Code(s): R79.89 - Other specified abnormal findings of blood chemistry Plan: Repeat thyroid function test. (3) Urinary incontinence: Code(s): R32 - Unspecified urinary incontinence Plan: Referred to urology. (4) Migraine: Code(s): G43.909 - Migraine, unspecified, not intractable, without status migrainosus Qualifiers: Migraine type: unspecified Status migrainosus presence: without status migrainosus Intractability: not intractable Qualified Code(s): G43.909 - Migraine, unspecified, not intractable, without status migrainosus Plan: Start magnesium. Decrease Topamax. Continue amitriptyline. (5) Fibromyalgia: Code(s): M79.7 - Fibromyalgia Plan: Continue gabapentin. Orders: Orders Thyroid Stimulating Hormone Today R79.89 - Other specified abnormal findings of blood chemistry Free T4 (Free Thyroxine) Today R79.89 - Other specified abnormal findings of blood chemistry Referrals Urology Referral R32 - Unspecified urinary incontinence Medications: New topiramate 25 mg PO BEDTIME 30 caps 6RF 30 days magnesium oxide 400 mg PO DAILY 90 caps 1RF 90 days Refilled gabapentin 600 mg PO BEDTIME 90 tabs 1RF 90 days gabapentin 400 mg PO DAILY 30 caps 6RF 30 days Discontinued topiramate Discontinued Reason: Patient Completed Course 50 mg PO BEDTIME 90 tabs 3RF Coding Level of Care Code Est Pt Level 4 (61776) Complex EM visit Add On G2211 Diagnoses Mild recurrent major depression F33.0 Elevated TSH R79.89 Urinary incontinence R32 Migraine without status migrainosus, not intractable, unspecified migraine type G43.909 Migraine type: unspecified Status migrainosus presence: without status migrainosus Intractability: not intractable Fibromyalgia M79.7 Time Spent (min) 23
== END 2024-03-13 10:35 | disposition home or self-care (01) ==
PROVIDERS: PCP Internal Medicine; Visit Provider Internal Medicine
DX: G43.909 Migraine, unspecified, not intractable, without status migrainosus (principal); F33.0 Major depressive disorder, recurrent, mild; R79.89 Other specified abnormal findings of blood chemistry; R32 Unspecified urinary incontinence; M79.7 Fibromyalgia
CPT/HCPCS: 99214; G2211

== ENCOUNTER 2024-05-04 16:40 | Emergency (ER) | payer OTHER, SELFPAY ==
--- NOTE | ~2024-05-04 | XR_ITS ---
EXAMINATION: XR ANKLE, LEFT CLINICAL INFORMATION: Fall COMPARISON: None available. TECHNIQUE: Two views of the left ankle. FINDINGS: No fracture. Alignment is anatomic. No erosions. Joint spaces are maintained. Soft tissue swelling overlying the medial malleolus. XR/XR ankle LT 2V IMPRESSION: Soft tissue swelling overlying the medial malleolus. Electronically signed by: Marlene Puga MD 05/04/2024 05:31 PM EST
--- NOTE | ~2024-05-04 | XR_ITS ---
EXAMINATION: XR FOOT, LEFT CLINICAL INFORMATION: Fall COMPARISON: None available. TECHNIQUE: AP, lateral, and oblique views of the left foot. FINDINGS: The bones and soft tissues are normal. No fracture. Alignment is anatomic. Joint spaces are maintained. XR/XR foot LT min 3V IMPRESSION: Normal left foot. Electronically signed by: Marlene Puga MD 05/04/2024 05:31 PM EST
--- NOTE | ~2024-05-04 | XR_ITS ---
EXAMINATION: XR KNEE, LEFT CLINICAL INFORMATION: Fall COMPARISON: None available. TECHNIQUE: Four views of the left knee. FINDINGS: No fracture or joint effusion. Alignment is anatomic. Joint spaces are maintained. No abnormal soft tissue calcification. XR/XR knee LT 3V IMPRESSION: Normal left knee. Electronically signed by: Marlene Puga MD 05/04/2024 05:31 PM [facility]
[2024-05-04 16:45] VITALS: BP 144/80; PULSE 93; O2SAT 98
[2024-05-04 16:46] VITALS: BP 134/71; PULSE 72; RESP 18; TEMP 36.8; O2SAT 96; BMI 24.4
[2024-05-04 18:50] VITALS: BP 110/69; PULSE 86; RESP 16; TEMP 36.7; O2SAT 98
[2024-05-04 20:13] VITALS: BP 137/70; PULSE 75; RESP 16; TEMP 36.8; O2SAT 98
--- NOTE | 2024-05-04 20:52 | ED.LOWEXIN ---
HPI - Extremity Injury (Lower) General Chief Complaint: Extremity Injury, Lower Stated Complaint: FALL -LOC, HS PER EMS Time Seen by Provider: 05/04/24 19:36 Source: patient Limitations: no limitations History of Present Illness ED Provider: Irasema de la cruz PA-C HPI Narrative: 58-year-old female presents after fall. Patient states she was walking down a flight of stairs, she tripped, falling forward down 3 steps. She subsequently rolled the left ankle. Patient complains of left knee foot and ankle pain. Patient has been ambulatory since the fall. No head strike. Related Data Previous Rx's ?Medication ?Instructions ?Recorded fluticasone propionate 50 1 spray intranasal DAILY 30 days 12/09/20 mcg/actuation nasal #16 grams spray,suspension cholecalciferol (vitamin D3) 25 25 mcg PO DAILY 90 days #90 caps 12/28/22 mcg (1,000 unit) capsule loratadine 10 mg tablet 10 mg PO DAILY 90 days #90 tabs 02/25/23 estradiol 0.01% (0.1 mg/gram) See Rx Instructions .Route DAILY 09/10/23 vaginal cream (Estrace) #42.5 grams sennosides 8.6 mg tablet 17.2 mg (2 x 8.6 mg) PO DAILY 90 12/03/23 days #180 tabs amitriptyline 10 mg tablet 10 mg PO BEDTIME 90 days #90 tabs 03/09/24 gabapentin 400 mg capsule 400 mg PO DAILY 30 days #30 caps 03/13/24 gabapentin 600 mg tablet 600 mg PO BEDTIME 90 days #90 tabs 03/13/24 magnesium oxide 400 mg PO DAILY 90 days #90 caps 03/13/24 topiramate 25 mg sprinkle capsule 25 mg PO BEDTIME 30 days #30 caps 03/13/24 Allergies Allergy/AdvReac Type Severity Reaction Status Date / Time pregabalin Allergy Intermediate mood Verified 05/04/24 16:50 behavior, blurry vision, dizziness, insomnia sumatriptan Allergy Intermediate nausea Verified 05/04/24 16:50 duloxetine AdvReac Intermediate sleepiness Verified 05/04/24 16:50 Review of Systems Review of Systems: Yes all other systems are reviewed and are negative Constitutional: Constitutional: Denies fatigue and Denies fever(s) Cardiovascular: Cardiovascular: Denies chest pain and Denies dyspnea Respiratory: Respiratory: Denies dyspnea Musculoskeletal: Musculoskeletal: Denies deformity, Reports arthralgias and Reports joint swelling Endocrine: Endocrine: Denies fatigue PMF Past Medical History Attestation statement: The following information was validated with the patient. Medical History Left shoulder pain Mild recurrent major depression Class 1 obesity with body mass index (BMI) of 31.0 to 31.9 in adult Pelvic pain in female Urinary urgency Constipation by delayed colonic transit Macroscopic hematuria Cough Obesity Electrocution and nonfatal effects of electric current Fibromyalgia Skin lesion Bilateral flank pain Migraine Hypovitaminosis D Surgical History History of carpal tunnel release History of section History of hysterectomy Family History Family History Father Prostate cancer Mother No problems noted. Social History Social History Housing: Apartment Alcohol intake: never Patient Tobacco Use Status: Never used Tobacco e-Cigarette/Vaping Use: Never Used Second Hand Smoke Exposure: Yes Advance Directives: No Advance Directives Information Provided: No service: No Current occupational status: employed Current occupational exposures/hazards: No Cognitive needs: No Hearing needs: No Vision needs: Yes Physical Exam Vital Signs: Vital Signs: Last Vital Signs Temp 98.2 F 05/04/24 21:51 Pulse 75 05/04/24 21:51 Resp 16 05/04/24 21:51 BP 137/70 05/04/24 21:51 Pulse Ox 98 05/04/24 21:51 O2 Del Method Room Air 05/04/24 21:51 BMI result Body Mass Index 24.4 Const: Other: alert, well in appearance Orientation/consciousness: patient oriented x3 Resp: Other: Nonlabored respiration Cardio: Other: Normal peripheral perfusion Skin: Other: Warm dry no rash Neuro: General: patient oriented x3, no focal motor deficits and CN's II-XI intact bilaterally Extrem: Other: Mild swelling noted along medial aspect of the left ankle, minimal flexion and extension Psych: Other: Calm cooperative Medical Decision Making Medical Decision Making MDM Narrative: 58-year-old female presents after fall. Patient states she was walking down a flight of stairs, she tripped, falling forward down 3 steps. She subsequently rolled the left ankle. Patient complains of left knee foot and ankle pain. Patient has been ambulatory since the fall. No head strike. No relevant chronic issues History: Per patient I have considered the following differential diagnoses: Fracture, dislocation, sprain Plan: Imaging was ordered from triage, of the knee foot and ankle, no fracture no dislocations, she has an ankle sprain. We will place her in an Aircast , send with crutches and RICE measures I have independently reviewed the following tests: X-ray left foot: XR/XR foot LT min 3V IMPRESSION: Normal left foot. Electronically signed by: Marlene Puga MD 05/04/2024 05:31 PM EST RP X-ray left knee: XR/XR knee LT 3V IMPRESSION: Normal left knee. Electronically signed by: Marlene Puga MD 05/04/2024 05:31 PM EST RP X-ray left ankle: XR/XR ankle LT 2V IMPRESSION: Soft tissue swelling overlying the medial malleolus. Electronically signed by: Marlene Puga MD 05/04/2024 05:31 PM EST RP Discharge Plan Discharge Clinical Impression: Left ankle sprain Patient Disposition: Home, Self-Care Instructions: Ankle Sprain (ED), Crutch Instructions (ED), Ankle Stirrup Splint (ED), R.I.C.E. Treatment (ED) Additional Instructions: X-rays of the knee foot and ankle were negative for fracture or dislocation. You have an ankle sprain. See home care instructions. Bear weight as tolerated. You can use [id number] ibuprofen 600 mg taken every 6 hours with food, alternated with [id number] Tylenol 1000 mg taken every 8 hours, as needed for pain. Follow up with your primary care provider as needed. Prescriptions: No Action cholecalciferol (vitamin D3) 25 mcg (1,000 unit) capsule 25 mcg PO DAILY 90 Days Qty: 90 3RF loratadine 10 mg tablet 10 mg PO DAILY 90 Days Qty: 90 1RF sennosides 8.6 mg tablet 17.2 mg PO DAILY 90 Days Qty: 180 3RF amitriptyline 10 mg tablet 10 mg PO BEDTIME 90 Days Qty: 90 1RF fluticasone propionate 50 mcg/actuation spray,suspension 1 spray intranasal DAILY 30 Days Qty: 16 6RF estradiol [Estrace] 0.01 % (0.1 mg/gram) cream See Rx Instructions .Route DAILY Qty: 42.5 1RF Rx Instructions: pea sized amount per urethra daily; gabapentin 600 mg tablet 600 mg PO BEDTIME 90 Days Qty: 90 1RF gabapentin 400 mg capsule 400 mg PO DAILY 30 Days Qty: 30 6RF topiramate 25 mg capsule, sprinkle 25 mg PO BEDTIME 30 Days Qty: 30 6RF magnesium oxide 400 mg magnesium capsule 400 mg PO DAILY 90 Days Qty: 90 1RF Stand Alone Forms: Work/School Release Interventions: ED Discharge Assessment Last Done: 05/04/24 21:51 Discharge Date/Time: 05/04/24 21:51 Print Language: Mongolian
[2024-05-04 21:51] VITALS: BP 137/70; PULSE 75; RESP 16; TEMP 36.8; O2SAT 98
== END 2024-05-04 21:51 | disposition home or self-care (01) ==
PROVIDERS: Emergency Provider Emergency Medicine; PCP Internal Medicine
DX: S93.402A Sprain of unspecified ligament of left ankle, initial encounter (principal); M25.572 Pain in left ankle and joints of left foot; W10.8XXA Fall (on) (from) other stairs and steps, initial encounter; Y93.89 Activity, other specified; Y92.89 Other specified places as the place of occurrence of the external cause; Y99.8 Other external cause status; Z79.899 Other long term (current) drug therapy
CPT/HCPCS: 73562; 73600; 73630; 99284

== ENCOUNTER 2024-05-13 08:42 | Outpatient (REF) | payer OTHER, SELFPAY ==
[2024-05-13 11:43] LABS: Free T4 (Free Thyroxine) 0.86 ng/dL (0.71-1.85); Thyroid Stimulating Hormone 2.54 uIU/mL (0.32-4.0); Vitamin D 25-OH Total 37.4 ng/mL (>30)
== END 2024-05-13 08:43 | disposition home or self-care (01) ==
LOC: HO.LAB 08:42
PROVIDERS: PCP Internal Medicine; Visit Provider Internal Medicine
DX: S93.402A Sprain of unspecified ligament of left ankle, initial encounter (principal); F33.0 Major depressive disorder, recurrent, mild; R79.89 Other specified abnormal findings of blood chemistry; E55.9 Vitamin D deficiency, unspecified
CPT/HCPCS: 36415; 82306; 84439; 84443; 99212

== ENCOUNTER 2024-05-13 08:42 | Outpatient (AMB) | payer OTHER, SELFPAY ==
[2024-05-13 08:53] VITALS: BP 118/80; BMI 28.0
--- NOTE | 2024-05-13 08:53 | MHC.PC.OV ---
Vital Signs 05/13/24 08:53 Height 5 ft 3 in Weight 158 lb BMI 28.0 BP 118/80 Blood Pressure Location Lt brachial Position Sitting Intake Visit Reasons: [place] paperwork Hide Handler Required: No Accompanied by: Self / Same As Patient Allergies pregabalin Allergy (Intermediate, Verified 05/13/24 09:00) mood behavior, blurry vision, dizziness, insomnia sumatriptan Allergy (Intermediate, Verified 05/13/24 09:00) nausea duloxetine Adverse Reaction (Intermediate, Verified 05/13/24 09:00) sleepiness Medication List - Last Reconciled 05/13/24 by Sarah Ortiz MD amitriptyline 10 mg PO BEDTIME 90 days cholecalciferol (vitamin D3) 25 mcg PO DAILY 90 days estradiol 0.01%(0.1mg/gram) (Estrace) pea sized amount per urethra daily; fluticasone propionate 50 mcg/actuation 1 spray intranasal DAILY 30 days gabapentin 600 mg PO BEDTIME 90 days gabapentin 400 mg PO DAILY 30 days loratadine 10 mg PO DAILY 90 days magnesium oxide 400 mg PO DAILY 90 days sennosides 17.2 mg (2 x 8.6 mg) PO DAILY 90 days topiramate 25 mg PO BEDTIME 30 days Tobacco use date assessed: 09/10/23 Dental Screening Dental Screen Date: 05/13/24 Did you have a dental visit in the last 12 months?: No Did you have a dental problem in the last 6 months where you did not have access to dental care?: No Was dental information given to patient?: Patient has dentist HPI HPI Comments History of Present Illness Details This is a 58-year-old female with mild recurrent major depression, low vitamin-D and elevated TSH that comes today complaining of left ankle pain secondary to sprain that happened 9 days ago while she tripped down the stairs. She twisted her ankle and since then have been swollen. X-ray were done showing soft tissue swelling. I will give her a stabilizer. Advised to use NSAIDs as needed. Will have an excuse to be out of work because walking and standing aggravate the pain and swelling. Depression stable with amitriptyline. TSH will be repeated as well as vitamin-D levels. Chest pain or shortness on breath. [facility] Medical History (Updated 05/13/24 @ 09:33 by Sarah Ortiz MD) Left shoulder pain Mild recurrent major depression Class 1 obesity with body mass index (BMI) of 31.0 to 31.9 in adult Pelvic pain in female Urinary urgency Constipation by delayed colonic transit Macroscopic hematuria Cough Obesity Electrocution and nonfatal effects of electric current Fibromyalgia Skin lesion Bilateral flank pain Migraine Hypovitaminosis D Surgical History History of carpal tunnel release History of section History of hysterectomy Family History Father Prostate cancer Mother No problems noted. Social History Housing: Apartment Alcohol intake: never Patient Tobacco Use Status: Never used Tobacco e-Cigarette/Vaping Use: Never Used Second Hand Smoke Exposure: Yes service: No Current occupational status: employed Current occupational exposures/hazards: No Cognitive needs: No Hearing needs: No Vision needs: Yes Questionnaire Thrive Questionnaire Date Thrive assessed: 09/10/23 KUMAR-7 AMB Questionnaire KUMAR-7 Date KUMAR - 7 assessed: 09/10/23 Source: Developed by Drs. Wander Arnold, Samara Mayer, Rudolph Lovelace and colleagues, with an educational marsha from [employer]. Review of Systems Const All systems reviewed & are unremarkable except as noted in HPI and below Card Denies chest pain at rest, Denies chest pain with activity, Denies edema, Denies irregular heart rhythm, Denies claudication, Denies dyspnea, Denies dyspnea on exertion, Denies orthopnea, Denies paroxysmal nocturnal dyspnea and Denies slow heart rate Resp Denies cough, Denies dyspnea and Denies dyspnea on exertion GI Denies abdominal pain, Denies change in bowel habits, Denies excessive flatus, Denies nausea and Denies vomiting Musc Reports arthralgias and Reports joint swelling Physical exam (Primary Care) Vital Signs: Last Vital Signs BP 118/80 05/13/24 08:53 BMI result Body Mass Index 28.0 BMI Assessment/Plan discussion: High BMI High, discussed plan: lifestyle, weight reduction, dietary and physical activity Tobacco/Smoking Status: Tobacco use Status Tobacco use date assessed 09/10/23 05/13/24 08:57 Patient Tobacco Use Status Never used Tobacco 05/13/24 08:57 e-Cigarette/Vaping Use Never Used 05/13/24 08:57 Thrive Assessment: Date of Thrive Assessment Date Thrive assessed 09/10/23 05/13/24 08:57 Resp Effort & Inspection: normal respiratory effort Auscultation: clear to auscultation bilaterally Cardio Jugular venous distension: no JVD Rate: regular rate Rhythm: regular rhythm Heart sounds: S1 normal heart sound present and S2 normal heart sound present Extrem Left lower extremity: ankle Details: tenderness, swelling and abnormal ROM Details: pain with active ROM Details: with dorsiflexion, with inversion and with eversion Office Procedures Flu Questionnaire Does the patient have a severe egg allergy?: No Immunizations Fluarix Triv [id number] (PF) 45 mcg (15 mcg x 3)/0.5 mL IM syringe Performing Provider: Sarah Ortiz MD [facility] [place] [facility] Documented (not given) by: MAC Donis on 05/13/24 09:07 Reason Not Given: Received Previously Coding Level of Care Code Est Pt Level 4 (64081) Complex EM visit Add On G2211 Diagnoses Sprain of left ankle, unspecified ligament, initial encounter S93.402A Encounter type: initial encounter Involved ligament of ankle: unspecified ligament Mild recurrent major depression F33.0 Elevated TSH R79.89 Hypovitaminosis D E55.9 Time Spent (min) 21 Assessment & Plan Assessment & Plan (1) Left ankle sprain: Code(s): S93.402A - Sprain of unspecified ligament of left ankle, initial encounter Category: Medical Qualifiers: Encounter type: initial encounter Involved ligament of ankle: unspecified ligament Qualified Code(s): S93.402A - Sprain of unspecified ligament of left ankle, initial encounter Plan: Use NSAIDs as needed. Start using stabilizer. (2) Mild recurrent major depression: Code(s): F33.0 - Major depressive disorder, recurrent, mild Category: Medical Plan: Continue amitriptyline. (3) Elevated TSH: Code(s): R79.89 - Other specified abnormal findings of blood chemistry Category: Medical Plan: Repeat thyroid function test. (4) Hypovitaminosis D: Code(s): E55.9 - Vitamin D deficiency, unspecified Category: Medical Plan: Continue vitamin-D supplements. Orders: Orders Free T4 (Free Thyroxine) Today R79.89 - Other specified abnormal findings of blood chemistry Influenza [id number] Immunization Today Z23 - Encounter for immunization Vitamin D 25-OH Total Today E55.9 - Vitamin D deficiency, unspecified Thyroid Stimulating Hormone Today R79.89 - Other specified abnormal findings of blood chemistry Medications: Changed From gabapentin 400 mg PO DAILY 30 days 30 caps 6RF To gabapentin 400 mg PO DAILY 90 days 90 caps 1RF Refilled gabapentin 600 mg PO BEDTIME 90 days 90 tabs 1RF
== END 2024-05-13 09:20 | disposition home or self-care (01) ==
PROVIDERS: PCP Internal Medicine; Visit Provider Internal Medicine
DX: S93.402A Sprain of unspecified ligament of left ankle, initial encounter (principal); F33.0 Major depressive disorder, recurrent, mild; R79.89 Other specified abnormal findings of blood chemistry; E55.9 Vitamin D deficiency, unspecified

== ENCOUNTER 2024-05-21 10:28 | Emergency (ER) | payer OTHER, SELFPAY ==
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
[2024-05-21 10:36] VITALS: BP 151/84; PULSE 84; RESP 18; TEMP 37.1; O2SAT 100; BMI 28.0
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
[2024-05-21 11:24] LABS: MANUAL DIFF FLAG NO
[2024-05-21 11:26] LABS: Basophils Percent Auto 0.5 % (0-2); Eosinophils Absolute Auto 0.1 X10*3/uL (0.0-0.4); Eosinophils Percent Auto 1.9 % (0-4); Hematocrit 35.3 % (37.0-47.0); Hemoglobin 11.4 g/dl (12.0-16.0); Imm Gran Abs Auto 0.01 X10*3/uL (0.00-0.03); Imm Gran Pct Auto 0.2 % (0.0-0.4); Lymphocytes Absolute Auto 1.7 X10*3/uL (1.2-4.9); Lymphocytes Percent Auto 28.4 % (20-40); Mean Corpuscular HGB Conc 32.3 g/dl (31.0-35.0); Mean Corpuscular Hemoglobin 27.9 pg (27.0-33.0); Mean Corpuscular Volume 86.3 fL (80.0-98.0); Mean Platelet Volume 9.5 fL (9.4-12.3); Monocytes Absolute Auto 0.4 X10*3/uL (0.1-1.2); Neutrophils Absolute Auto 3.7 x10*3/uL (2.0-8.3); Platelet Count 230 X10*3/uL (160-400); Red Blood Count 4.09 X10*6/uL (4.20-5.50); Red Cell Distribution Width 12.5 % (11.0-16.0); White Blood Count 5.9 X10*3/uL (4.8-10.8)
[2024-05-21 11:48] LABS: Albumin Level 4.2 g/dL (3.5-5.0); Alkaline Phosphatase 96 U/L (39-117); Anion Gap 10 (12-20); Aspartate Amino Transferase 35 U/L (5-31); Bilirubin Direct 0.1 mg/dL (0.0-0.5); Bilirubin Total 0.4 mg/dL (0.0-1.0); Blood Urea Nitrogen 16 mg/dL (9-16); Calcium 9.6 mg/dL (8.4-10.2); Carbon Dioxide 30 mmol/L (22-29); Chloride 105 mmol/L (96-108); Creatinine Clr Calc Pharmacy 79.6; Estimated Glomerular Filt Rate > 60; Glucose Random 85 mg/dL (60-115); Magnesium 2.2 mg/dL (1.6-2.6); Potassium 3.8 mmol/L (3.3-5.1); Sodium 141 mmol/L (135-145); Total Protein 7.3 g/dL (6.5-8.0)
[2024-05-21 12:10] LABS: Alanine Aminotransferase 32 U/L (0-31)
[2024-05-21] MEDS: iohexoL 350 MG/ML 100 ML INFUS..BTL IV (12:42)
[2024-05-21 14:35] VITALS: BP 128/75; PULSE 68; RESP 14; TEMP 36.8; O2SAT 97
[2024-05-21 16:10] VITALS: BP 128/75; PULSE 68; RESP 14; TEMP 36.8; O2SAT 97
== END 2024-05-21 16:10 | disposition home or self-care (01) ==
PROVIDERS: Emergency Provider Emergency Medicine; PCP Internal Medicine
DX: S20.219A Contusion of unspecified front wall of thorax, initial encounter (principal); S10.93XA Contusion of unspecified part of neck, initial encounter; V43.52XA Car driver injured in collision with other type car in traffic accident, initial encounter; Y93.89 Activity, other specified; Y92.414 Local residential or business street as the place of occurrence of the external cause; Y99.9 Unspecified external cause status
CPT/HCPCS: 36415; 70498; 80048; 80076; 83735; 85025; 99284; Q9967

== ENCOUNTER → 2024-05-21 11:12 | Outpatient (BNV) | payer OTHER, SELFPAY | PROVIDERS: Emergency Provider Emergency Medicine; PCP Internal Medicine; Visit Provider Radiology Diagnostic Radiology | DX: S10.93XA Contusion of unspecified part of neck, initial encounter (principal); R07.9 Chest pain, unspecified; Z04.3 Encounter for examination and observation following other accident | CPT/HCPCS: 70498 ==

== ENCOUNTER 2024-05-26 07:23 | Outpatient (AMB) | payer OTHER, SELFPAY ==
[2024-05-26 07:43] VITALS: BP 122/74; BMI 28.0
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
== END 2024-05-26 08:11 | disposition home or self-care (01) ==
PROVIDERS: PCP Internal Medicine; Visit Provider Internal Medicine
DX: S16.1XXA Strain of muscle, fascia and tendon at neck level, initial encounter (principal); Z23 Encounter for immunization

== ENCOUNTER → 2024-05-26 07:23 | Outpatient (BNVA) | payer OTHER, SELFPAY | PROVIDERS: PCP Internal Medicine; Visit Provider Internal Medicine | DX: S16.1XXA Strain of muscle, fascia and tendon at neck level, initial encounter (principal) | CPT/HCPCS: 90471 ==

== ENCOUNTER 2024-05-30 10:24 | Outpatient (REF) | payer OTHER, SELFPAY | END 2024-05-30 10:25 | disposition home or self-care (01) | LOC: HO.US 10:24 | PROVIDERS: PCP Internal Medicine; Visit Provider Nurse Practitioner Family | DX: R32 Unspecified urinary incontinence (principal); N20.0 Calculus of kidney | CPT/HCPCS: 76770 ==

== ENCOUNTER 2024-07-04 08:14 | Day surgery (SDC) | payer OTHER, SELFPAY ==
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
[2024-07-04] MEDS: Lactated Ringers 1,000 ML 100 ML IVCONT (08:52)
[2024-07-04] MEDS: Sodium Phosphate,Mono-Dibasic 133 ML ENEMA PR (09:00)
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
[2024-07-04 09:08] VITALS: BP 121/74; PULSE 84; RESP 18; TEMP 36.8; O2SAT 99
[2024-07-04 09:16] VITALS: BMI 27.5
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
[2024-07-04 10:17] VITALS: BP 99/59; PULSE 84; RESP 16; TEMP 36.2; O2SAT 96
--- NOTE | 2024-07-04 10:17 | HO.OPN-COLON ---
Colonoscopy Operative Note Operative Note Date of Service: 07/04/24 Narrative: COLONOSCOPY TILL CECUM WITH SNARE POLYPECTOMY, SUBMUCOSAL INJECTION AND HEMOCLIP PLACEMENT Pre-op diagnosis: Colon cancer screening (Direct access colonoscopy). Pt had a negative colonoscopy in 2013 Post-op diagnosis:? colon polyps, Diverticulosis, hemorrhoids Endoscopist:? Raphael Peterson MD Anesthesia:?MAC Consent: Indications for the procedure and potential complications of bleeding, perforation, reaction to medications and missed diagnosis were discussed with the patient and informed consent was obtained. Instrument: Olympus PCF H 190 L variable stiffness pediatric colonoscope Monitoring: Vital signs and clinical assessment, intermittent blood pressure monitoring, continuous EKG monitoring, Pulse oximetry and Carbon Dioxide monitoring were done throughout the procedure. Please see anesthesia flowsheet. Colon withdrawl time was 16 minutes. Procedure: The patient was placed in the left lateral decubitis position and pre-procedure medications were administered. After a digital rectal examination of the ano-rectum, the video colonoscope was inserted into the rectum and advanced through the colon to the cecum. The colonoscope was slowly withdrawn in a retrograde panoramic fashion and the colon mucosa was carefully examined including a retroflexed view of the rectum. Findings and interventions are described below. Procedure Difficulty: Colon was long and tortuous and there was some loop formation Findings: Terminal Ileum: Not evaluated Cecum: A 2 - 2.5 cms sessile polyp near the appendicular orifice. Polyp was raised with 4 cc of Eleview and removed piecemeal with a stiff hot snare. Polypectomy site was closed with 1 hemoclip. Polyp was removed with a Llanos net Ascending Colon: Normal Transverse Colon: A 4-5 mm sessile polyp in the proximal transverse colon - removed with a cold snare Descending Colon: Normal Sigmoid Colon: Moderate diverticulosis Rectum: Normal Ano-rectum: Moderate internal hemorrhoids and perianal skin tags Colon preparation: Excellent, after some irrigation. [place] Bowel Preparation Scale Right colon; 3 Transverse colon: 3 Left colon; 3 (0 = Unprepared colon segment with mucosa not seen due to solid stool that cannot be cleared. 1 = Portion of mucosa of the colon segment seen, but other areas of the colon segment not well seen due to staining, residual stool and/or opaque liquid. 2 = Minor amount of residual staining, small fragments of stool and/or opaque liquid, but mucosa of colon segment seen well. 3 = Entire mucosa of colon segment seen well with no residual staining, small fragments of stool or opaque liquid) Impression and Post Procedure Diagnosis: Colonoscopy Findings: One small and one medium sized polyps were removed Moderate diverticulosis seen in the sigmoid colon Moderate hemorrhoids on retroflexed exam. Plan: I will send a letter with biopsy results. Repeat Colonoscopy in 1 year if polyps are adenomatous (to check polypectomy site in the cecum) and 10 years if polyps are hyperplastic. Above findings were reviewed with the patient and relevant handouts were given and the discharge area.
--- NOTE | 2024-07-04 10:24 | HO.POSTANES ---
Post Anesthesia Evaluation Post Anesthesia Evaluation Date of Service: 07/04/24 Vital Signs: Vital Signs Temp Pulse Resp BP Pulse Ox O2 Del Method 07/04/24 09:08 98.2 F 84 18 121/74 99 Room Air Anesthesia: Monitored Mental Status: Awake Pain Control: Satisfactory Nausea/Vomiting: None Hydration: Adequate Anesthesia-Related Issues: No Anes. Related Issues
[2024-07-04 10:31] VITALS: BP 123/68; PULSE 86; RESP 16; O2SAT 98
[2024-07-04 10:44] VITALS: BP 114/68; PULSE 68; RESP 16; TEMP 36.3; O2SAT 99
== END 2024-07-04 11:22 | disposition home or self-care (01) ==
PROVIDERS: PCP Internal Medicine; Visit Provider Internal Medicine Gastroenterology
PROC: 0DJD8ZZ Inspection of Lower Intestinal Tract, Via Natural or Artificial Opening Endoscopic (ICD-10-PCS; CPT 45378; principal; 2024-07-04 10:00)
DX: Z12.11 Encounter for screening for malignant neoplasm of colon (principal); D12.0 Benign neoplasm of cecum; K63.5 Polyp of colon; K57.30 Diverticulosis of large intestine without perforation or abscess without bleeding; K64.8 Other hemorrhoids; K64.4 Residual hemorrhoidal skin tags; K59.01 Slow transit constipation; M79.7 Fibromyalgia; R10.2 Pelvic and perineal pain; R31.0 Gross hematuria; F33.0 Major depressive disorder, recurrent, mild; G43.909 Migraine, unspecified, not intractable, without status migrainosus; E66.811 Obesity, class 1; Z68.31 Body mass index [BMI] 31.0-31.9, adult; R39.15 Urgency of urination; R05.9 Cough, unspecified; Z87.828 Personal history of other (healed) physical injury and trauma; Z79.1 Long term (current) use of non-steroidal anti-inflammatories (NSAID); Z79.51 Long term (current) use of inhaled steroids; Z79.899 Other long term (current) drug therapy; Z88.8 Allergy status to other drugs, medicaments and biological substances; Z98.890 Other specified postprocedural states
CPT/HCPCS: 45385; 45381; 88305; J2003; J2704

== ENCOUNTER → 2024-07-04 08:14 | Outpatient (BNV) | payer OTHER, SELFPAY | PROVIDERS: PCP Internal Medicine; Visit Provider Internal Medicine Gastroenterology | DX: Z12.11 Encounter for screening for malignant neoplasm of colon (principal); D12.0 Benign neoplasm of cecum; K63.5 Polyp of colon; K57.30 Diverticulosis of large intestine without perforation or abscess without bleeding; K64.8 Other hemorrhoids; K64.4 Residual hemorrhoidal skin tags | CPT/HCPCS: 45381; 45385 ==

== ENCOUNTER 2024-07-08 08:00 | Outpatient (RCR) | payer OTHER, SELFPAY ==
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
--- NOTE | 2024-07-08 09:17 | MHC.PT.DC ---
[facility] [place] Office [place] Office [place] Office [address] Janell Wall [address] [phone] F: [phone] F: [phone] F: [phone] F: [phone] Physical Therapy Discharge Report Diagnosis: cervical strain Date of Surgery: n/a Date of Evaluation: 06/09/24 Date of Discharge: 07/08/24 Treatments to Date: 8 Cancellations to Date: 1 No Shows to Date: 0 Discharge Status: Improved Function Independent with HEP Discharge Summary: 07/08/2023: Pt has made some progress since start of care however is continuing to have ongoing pain and limitations. At this point she is independent in her HEP and based on lack of recent progress skilled PT is no longer indicated. Recommend continuing with her HEP at home and if pain continues to limit her then follow up with her doctor for more imaging. She is in agreement with d/c today and plan going forward. Electronically signed by: Jasmin Antoine, PT, DPT, ATC Please sign and return to therapist. Thank you for your referral.
== END 2024-07-08 09:17 | disposition home or self-care (01) ==
LOC: HO.PTCHIC 08:00
PROVIDERS: PCP Internal Medicine; Visit Provider Internal Medicine
DX: S16.1XXA Strain of muscle, fascia and tendon at neck level, initial encounter (principal)
CPT/HCPCS: 97110; 97161

== ENCOUNTER 2024-08-12 07:49 | Outpatient (AMB) | payer OTHER, SELFPAY ==
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
== END 2024-08-12 08:51 | disposition home or self-care (01) ==
PROVIDERS: PCP Internal Medicine; Visit Provider Nurse Practitioner Family
DX: R32 Unspecified urinary incontinence (principal); R39.15 Urgency of urination
CPT/HCPCS: 99213

== ENCOUNTER → 2024-08-12 07:49 | Outpatient (BNVA) | payer OTHER, SELFPAY | PROVIDERS: PCP Internal Medicine; Visit Provider Nurse Practitioner Family ==

== ENCOUNTER 2024-09-15 08:57 | Outpatient (RCR) | payer OTHER, SELFPAY ==
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
--- NOTE | 2024-09-15 10:00 | MHC.PT.DC ---
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 Otherwise she reports feeling better than the beginning and can do more. NDI showing improvement as well as improved cervical ROM. At this time, she is I with HEP and is appropriate for d/c No further questions at this time. Electronically signed by: Agnieszka Jay PT Please sign and return to therapist. Thank you for your referral.
== END 2024-09-15 10:01 | disposition home or self-care (01) ==
LOC: HO.PT 08:57
PROVIDERS: PCP Internal Medicine; Visit Provider Internal Medicine
DX: S16.1XXA Strain of muscle, fascia and tendon at neck level, initial encounter (principal); V89.0XXA Person injured in unspecified motor-vehicle accident, nontraffic, initial encounter
CPT/HCPCS: 97110; 97140; 97161

== ENCOUNTER 2024-11-10 08:34 | Outpatient (AMB) | payer OTHER, SELFPAY ==
--- NOTE | 2024-11-10 08:38 | MHC.PC.OV ---
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 Accompanied by: Self / Same As Patient Allergies pregabalin Allergy (Intermediate, Verified 11/10/24 08:57) mood behavior, blurry vision, dizziness, insomnia sumatriptan Allergy (Intermediate, Verified 11/10/24 08:57) nausea duloxetine Adverse Reaction (Intermediate, Verified 11/10/24 08:57) sleepiness Medication List - Last Reconciled 11/10/24 by Sarah Ortiz MD cholecalciferol (vitamin D3) 25 mcg PO DAILY 90 days estradiol 0.01%(0.1mg/gram) (Estrace) pea sized amount per urethra daily; gabapentin 400 mg PO DAILY 90 days gabapentin 600 mg PO BEDTIME 90 days lidocaine 5% 1 patch topical DAILY loratadine 10 mg PO DAILY 90 days sennosides 17.2 mg (2 x 8.6 mg) PO DAILY 90 days topiramate 25 mg PO BEDTIME 30 days Tobacco use date assessed: 11/10/24 Dental Screening Dental Screen Date: 11/10/24 Did you have a dental visit in the last 12 months?: Yes Did you have a dental problem in the last 6 months where you did not have access to dental care?: No Was dental information given to patient?: Patient has dentist HPI HPI Comments History of Present Illness Details The patient is a 59-year-old female presenting with an annual physical examination and vaccination review. She had a tetanus vaccination last administered in 2010, indicating a booster may be needed. 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 Previous findings required the adenoma to be clipped due to its size. Her medical history reveals osteoporosis managed through lifestyle, without specific medication updates provided. The patient has migraines controlled with nightly Topamax, and she takes gabapentin for pain management that interferes with her sleep patterns. Additionally, she experiences allergic rhinitis, though further details on specific treatment plans or medication updates were not provided. For her depressive symptoms, which are mild and intermittent, she lacks a current psychiatric provider. - Tetanus booster discussed and planned due to last administration in 2010. - Regular mammograms, with previous detection of tubulovillous adenoma. - Colonoscopy follow-up advised within 8 months to a year after clipping of a large adenoma. - Migraine management with Topamax discussed. - Weight monitoring and discussions around dietary intake and constipation. [facility] Medical History Left shoulder pain Mild recurrent major depression Class 1 obesity with body mass index (BMI) of 31.0 to 31.9 in adult Pelvic pain in female Urinary urgency Constipation by delayed colonic transit Macroscopic hematuria Cough Obesity Electrocution and nonfatal effects of electric current Fibromyalgia Skin lesion Bilateral flank pain Migraine Hypovitaminosis D Surgical History History of carpal tunnel release History of section History of hysterectomy Family History Father Prostate cancer Mother No problems noted. Social History Housing: Apartment Are you a primary care asst to a significant other at home: No Do you presently have visiting nurse or other home services: No Alcohol intake: never Patient Tobacco Use Status: Never used Tobacco e-Cigarette/Vaping Use: Never Used Second Hand Smoke Exposure: Yes service: No Current occupational status: employed Current occupational exposures/hazards: No Cognitive needs: No Hearing needs: No Vision needs: Yes Questionnaire PHQ-9 Over the last 2 weeks, how often have you been bothered by any of the following problems? 1. Little interest or pleasure in doing things: several days 2. Feeling down, depressed, or hopeless: several days 3. Trouble falling or staying asleep, or sleeping too much: not at all 4. Feeling tired or having little energy: several days 5. Poor appetite or overeating: several days 6. Feeling bad about yourself - or that you are a failure or have let yourself or your family down: not at all 7. Trouble concentrating on things, such as reading the newspaper or watching television: not at all 8. Moving or speaking so slowly that other people could have noticed. Or the opposite - being so fidgety or restless that you have been moving around a lot more than usual: not at all 9. Thoughts that you would be better off or of hurting yourself in some way: not at all Total score: 4 Depression Screening Interpretation: Positive Depression Screening Follow-up: Existing condition, In treatment and Follow-up Visit Requested Depression Screening Done: Yes 70206 - PHQ-9 Billing: Yes Source: Developed by Drs. Wander Arnold, Samara Mayer, Rudolph Lovelace and colleagues, with an educational marsha from [employer]. Thrive Questionnaire Date Thrive assessed: 11/10/24 I am a: Patient What is your living situation today?: I have a steady place to live Within the past 12 months, did the food you bought not last and you didn't have the money to get more?: Sometimes True Within the past 12 months, did you worry whether your food would run out before you got money to buy more?: Sometimes True Do you have trouble paying for medicines?: No Do you have trouble getting transportation to medical appointments?: No Do you have trouble paying your heating and electricity bill?: Yes Do you have trouble taking care of your child, family member or friend?: No Do you have trouble with day-to-day activities such as bathing, preparing meals, shopping, managing finances, etc.?: No Are you currently unemployed and looking for a job?: No Are you interested in more education?: No Please select the resources that you would like help with: Food and Utilities Currently or been in a relationship where the following occur: No concerns reported THRIVE Score: 3 AUDIT C Alcohol Use Questionnaire (AUDIT-C) 1. How often do you have a drink containing alcohol?: Never Total Score: 0 Score Reviewed/Action Taken: No KUMAR-7 AMB Questionnaire KUMAR-7 Date KUMAR - 7 assessed: 11/10/24 Feeling nervous, anxious, or on edge: 1 = Several days Not being able to stop or control worryin = Not at all Worrying too much about different things: 1 = Several days Trouble relaxin = Several days Being so restless that it is hard to sit still: 0 = Not at all Becoming easily annoyed or irritable: 0 = Not at all Feeling afraid as if something awful might happen: 0 = Not at all Total KUMAR-7 score (0-4 normal; 5-9 mild; 10-14 moderate; 15-21 severe): 3 Source: Developed by Drs. Wander Arnold, Samara Mayer, Rudolph Lovelace and colleagues, with an educational marsha from [employer]. KUMAR-7 Assessment Billing KUMAR-7 Assessment Tool: KUMAR-7 Assessment 03180 Review of Systems Const All systems reviewed & are unremarkable except as noted in HPI and below Card Denies chest pain at rest, Denies chest pain with activity, Denies edema, Denies irregular heart rhythm, Denies claudication, Denies dyspnea, Denies dyspnea on exertion, Denies orthopnea, Denies paroxysmal nocturnal dyspnea and Denies slow heart rate Resp Denies cough, Denies dyspnea and Denies dyspnea on exertion GI Denies abdominal pain, Denies change in bowel habits, Denies excessive flatus, Denies nausea and Denies vomiting Skin/Breast Denies bleeding lesions, Denies changing lesions and Denies rash Neuro Denies behavioral changes and Denies lack of coordination Psych Denies behavioral changes Physical exam (Primary Care) Vital Signs: Last Vital Signs BP 122/80 11/10/24 08:39 BMI result Body Mass Index 27.1 Tobacco/Smoking Status: Tobacco use Status Tobacco use date assessed 11/10/24 11/10/24 08:45 Patient Tobacco Use Status Never used Tobacco 11/10/24 08:45 e-Cigarette/Vaping Use Never Used 11/10/24 08:45 PHQ-9: PHQ-9 Score PHQ-9: Total score 4 11/10/24 09:16 Depression Screening Interpretation: Positive Depression Screening Follow-up: Existing condition, In treatment and Follow-up Visit Requested Thrive Assessment: Date of Thrive Assessment Date Thrive assessed 11/10/24 11/10/24 08:45 Currently or been in a relationship where the following occur: No concerns reported [facility] Head: Yes normal to inspection, Yes normocephalic and Yes atraumatic Ears: external ears normal Eyes General: appearance normal, both eyes and all related structures Eyelids: Yes eyelids normal Conjunctivae: conjunctivae normal Neck Neck: Yes normal visual inspection and Yes supple Resp Effort & Inspection: normal respiratory effort Auscultation: clear to auscultation bilaterally Cardio Jugular venous distension: no JVD Rate: regular rate Rhythm: regular rhythm Heart sounds: S1 normal heart sound present and S2 normal heart sound present GI Inspection: Yes normal to inspection Palpation (GI): Soft to palpation and nontender Auscultation: normal bowel sounds Skin General skin exam: no rashes or lesions noted Neuro General: no focal motor deficits Extrem General: Yes full ROM Psych Appearance: grossly normal Immunizations Boostrix Tdap 2.5 Lf unit-8 mcg-5 Lf/0.5 mL intramuscular syringe Performing Provider: Sarah Ortiz MD [facility] Administered by: MAC Donis on 11/10/24 09:16 Dose Route Admin Location Dispensed Lot Number Expiration Date NDC [employer] Reg[employer] Operator 0.5 mL IM Left Deltoid 0.5 mL [id number] 02/24/27 47552-938-80 [employer] VIS Given Date VIS Provided VIS Publication Date 11/10/24 Single Vaccine 24 Eligibility Eligibility Date Funding Source Not [facility] Eligible 11/10/24 Private Coding Level of Care Code Est Pt Level 3 (90615) Est Pt Prev Care 40-64y(60586) Diagnoses Physical exam Z00.00 Mild recurrent major depression F33.0 Constipation by delayed colonic transit K59.01 Migraine without status migrainosus, not intractable, unspecified migraine type G43.909 Migraine type: unspecified Status migrainosus presence: without status migrainosus Intractability: not intractable Fibromyalgia M79.7 Additional Codes KUMAR-7 Assessment Billing - KUMAR-7 Assessment Tool: KUMAR-7 Assessment 53403 ([id number]) PHQ-9 - 51988 - PHQ-9 Billing: Yes ([id number]) Time Spent (min) 34 Assessment & Plan Assessment & Plan (1) Physical exam: Code(s): Z00.00 - Encounter for general adult medical examination without abnormal findings Category: Medical (2) Mild recurrent major depression: Code(s): F33.0 - Major depressive disorder, recurrent, mild Category: Medical (3) Constipation by delayed colonic transit: Code(s): K59.01 - Slow transit constipation Category: Medical (4) Migraine: Code(s): G43.909 - Migraine, unspecified, not intractable, without status migrainosus Category: Medical Qualifiers: Migraine type: unspecified Status migrainosus presence: without status migrainosus Intractability: not intractable Qualified Code(s): G43.909 - Migraine, unspecified, not intractable, without status migrainosus (5) Fibromyalgia: Code(s): M79.7 - Fibromyalgia Category: Medical Plan I advised a follow-up colonoscopy to evaluate the tubulovillous adenoma and replenish her vaccination status with a Tdap booster. Osteoporosis management centers on non-pharmacological interventions, emphasizing diet and activity, while migraines are managed with Topamax. For her unexplained dysuria, hydration is recommended, and her allergic rhinitis will continue to be managed with loratadine. Constipation will also be addressed with dietary adjustments, enhancing water and fiber intake, and possibly adjusting current medication if issues persist. Prescriptions for lidocaine patches to manage neck discomfort were provided. Patient was informed and verbally consented to the use of an ambient scribe for clinic note documentation during this visit. During this visit, we discussed obtaining a Tdap booster given the lapse since the prior dose. I emphasized the importance of the follow-up colonoscopy due within 8 months to 1 year for monitoring the clipped tubulovillous adenoma. Strategies for managing migraines via Topamax and the importance of lifestyle changes for osteoporosis were highlighted. We talked about mood monitoring as she experiences mild depressive symptoms and aimed to discuss mindful hydration and diet management to alleviate constipation and potential urinary symptoms. I provided prescriptions for lidocaine patches and reviewed allergy medication effectiveness. Follow-up plans were set to reassess these conditions and interventions as needed. Orders: Orders Thyroid Stimulating Hormone Today R79.89 - Other specified abnormal findings of blood chemistry Free T4 (Free Thyroxine) Today R79.89 - Other specified abnormal findings of blood chemistry Lipid Panel Today E78.5 - Hyperlipidemia, unspecified, Z00.00 - Encounter for general adult medical examination without abnormal findings TDaP Immunization Today Z23 - Encounter for immunization Vitamin D 25-OH Total Today E55.9 - Vitamin D deficiency, unspecified Comprehensive Clio. Panel Fast Today Z00.00 - Encounter for general adult medical examination without abnormal findings Complete Blood Count Auto Diff Today D64.9 - Anemia, unspecified IRON PROFILE Today D64.9 - Anemia, unspecified Medications: New docusate calcium 240 mg PO BEDTIME 90 days 90 caps 1RF nabumetone 750 mg PO BID 30 days PRN 60 tabs 0RF pain M79.7 - Fibromyalgia Refilled cholecalciferol (vitamin D3) 25 mcg PO DAILY 90 days 90 caps 3RF E55.9 - Vitamin D deficiency, unspecified lidocaine 5% leave on most painful area for up to 12 hrs 1 patch topical DAILY 30 ea 0RF Discontinued sennosides Discontinued Reason: Patient Completed Course 17.2 mg (2 x 8.6 mg) PO DAILY 90 days 180 tabs 3RF Patient Instructions: - Schedule and receive a Tdap booster vaccination. - Arrange a follow-up colonoscopy within the recommended timeframe. - Continue migraine management with Topamax as prescribed. - Maintain adequate hydration and increase dietary fiber to help with constipation. - Use lidocaine patches for relief of neck pain as needed. - Monitor mood symptoms, and consider consulting a psychiatric professional if needed. - Continue managing allergies with loratadine and monitor symptoms. - Report any significant change in urinary or gastrointestinal symptoms.
[2024-11-10 08:39] VITALS: BP 122/80; BMI 27.1
== END 2024-11-10 09:15 | disposition home or self-care (01) ==
LOC: HO.HMCH 08:35
PROVIDERS: PCP Internal Medicine; Visit Provider Internal Medicine
DX: Z00.00 Encounter for general adult medical examination without abnormal findings (principal); G43.909 Migraine, unspecified, not intractable, without status migrainosus; F33.0 Major depressive disorder, recurrent, mild; K59.01 Slow transit constipation; M79.7 Fibromyalgia; Z23 Encounter for immunization

== ENCOUNTER → 2024-11-10 08:34 | Outpatient (BNVA) | payer OTHER, SELFPAY | PROVIDERS: PCP Internal Medicine; Visit Provider Internal Medicine | DX: Z00.00 Encounter for general adult medical examination without abnormal findings (principal); F33.0 Major depressive disorder, recurrent, mild; K59.01 Slow transit constipation; M81.0 Age-related osteoporosis without current pathological fracture; G43.909 Migraine, unspecified, not intractable, without status migrainosus; M79.7 Fibromyalgia; R79.89 Other specified abnormal findings of blood chemistry; E78.5 Hyperlipidemia, unspecified; E55.9 Vitamin D deficiency, unspecified; D64.9 Anemia, unspecified; Z23 Encounter for immunization | CPT/HCPCS: 90471; 90715; 96127; 99212; 99396 ==

== ENCOUNTER 2024-11-22 08:54 | Outpatient (REF) | payer OTHER, SELFPAY ==
[2024-11-22 09:14] LABS: MANUAL DIFF FLAG NO
[2024-11-22 09:46] LABS: Basophils Percent Auto 0.4 % (0-2); Eosinophils Absolute Auto 0.1 X10*3/uL (0.0-0.4); Eosinophils Percent Auto 1.8 % (0-4); Hematocrit 37.2 % (37.0-47.0); Hemoglobin 11.9 g/dl (12.0-16.0); Imm Gran Abs Auto 0.02 X10*3/uL (0.00-0.03); Imm Gran Pct Auto 0.4 % (0.0-0.4); Lymphocytes Absolute Auto 2.1 X10*3/uL (1.2-4.9); Lymphocytes Percent Auto 37.5 % (20-40); Mean Corpuscular Hemoglobin 27.4 pg (27.0-33.0); Mean Corpuscular Volume 85.7 fL (80.0-98.0); Mean Platelet Volume 9.8 fL (9.4-12.3); Monocytes Absolute Auto 0.4 X10*3/uL (0.1-1.2); Monocytes Percent Auto 6.8 % (2-11); Neutrophils Percent Auto 53.1 % (45-73); Platelet Count 217 X10*3/uL (160-400); Red Blood Count 4.34 X10*6/uL (4.20-5.50); Red Cell Distribution Width 12.6 % (11.0-16.0); White Blood Count 5.6 X10*3/uL (4.8-10.8)
[2024-11-22 10:32] LABS: Alanine Aminotransferase 23 U/L (0-31); Albumin Level 4.4 g/dL (3.5-5.0); Alkaline Phosphatase 90 U/L (39-117); Anion Gap 9 (12-20); Aspartate Amino Transferase 27 U/L (5-31); Bilirubin Total 0.6 mg/dL (0.0-1.0); Blood Urea Nitrogen 17 mg/dL (9-16); Calcium 9.7 mg/dL (8.4-10.2); Carbon Dioxide 31 mmol/L (22-29); Chloride 106 mmol/L (96-108); Cholesterol 213 mg/dL (<200); Estimated Glomerular Filt Rate > 60; Glucose Fasting 83 mg/dL (60-99); HDL Cholesterol 69 mg/dL (>40); Iron 104 mcg/dL (30-160); LDL Cholesterol Calculated 128 mg/dL (<100); Percent Iron Saturation 43 % (15-50); Potassium 4.2 mmol/L (3.3-5.1); Sodium 142 mmol/L (135-145); Total Iron Binding Capacity 243 mcg/dL (228-428); Total Protein 7.3 g/dL (6.5-8.0); Triglycerides 80 mg/dL (<150); Unsaturated Iron Binding 139 ug/dL
[2024-11-22 10:50] LABS: Free T4 (Free Thyroxine) 0.86 ng/dL (0.71-1.85); Thyroid Stimulating Hormone 3.19 uIU/mL (0.32-4.0); Vitamin D 25-OH Total 33.7 ng/mL (>30)
== END 2024-11-22 08:55 | disposition home or self-care (01) ==
LOC: HO.LAB 08:54
PROVIDERS: PCP Internal Medicine; Visit Provider Internal Medicine
DX: Z00.00 Encounter for general adult medical examination without abnormal findings (principal); R79.89 Other specified abnormal findings of blood chemistry; E78.5 Hyperlipidemia, unspecified; E55.9 Vitamin D deficiency, unspecified; D64.9 Anemia, unspecified
CPT/HCPCS: 36415; 80053; 80061; 82306; 83540; 84439; 84443; 85025

== ENCOUNTER 2025-01-05 09:43 | Outpatient (REF) | payer OTHER, SELFPAY | END 2025-01-05 09:44 | disposition home or self-care (01) | LOC: HO.MAMMO 09:43 | PROVIDERS: PCP Internal Medicine; Visit Provider Internal Medicine | DX: Z13.89 Encounter for screening for other disorder (principal) ==

== ENCOUNTER → 2025-01-05 09:45 | Outpatient (BNV) | payer OTHER, SELFPAY | PROVIDERS: PCP Internal Medicine; Visit Provider Internal Medicine | DX: Z12.31 Encounter for screening mammogram for malignant neoplasm of breast (principal) | CPT/HCPCS: 77063; 77067 ==

== ENCOUNTER 2025-01-06 | Outpatient (REF) | payer OTHER, SELFPAY ==
--- NOTE | ~2025-01-06 | MM_ITS ---
EXAMINATION: MM SCREENING DIGITAL BREAST TOMOSYNTHESIS, BILATERAL CLINICAL INFORMATION: Screening. Asymptomatic. COMPARISON: Mammography: Comparison is made with available priors TECHNIQUE: Digital breast mammography with tomosynthesis is performed in both the craniocaudal and mediolateral oblique views along with computer-aided detection (CAD). FINDINGS: There are scattered areas of fibroglandular density (ACR BI-RADS breast composition Category b). There are no significant masses, abnormal calcifications, or other abnormalities. MM/MM tomosynthesis screening BI IMPRESSION: No mammographic evidence of malignancy. ASSESSMENT: BI-RADS BI-RADS 1 - Negative RECOMMENDATION: Routine annual mammography screening. 1 year F/U This examination should not preclude the clinical evaluation of a suspicious palpable abnormality. This patient's information was entered into a reminder system with a target due date for their next mammogram. Electronically signed by: Lesley Freire DO 01/14/2025 09:11 PM EDT
== END 2025-01-06 00:01 | disposition home or self-care (01) ==
LOC: HO.MAMMO
PROVIDERS: PCP Internal Medicine; Visit Provider Internal Medicine
DX: Z12.31 Encounter for screening mammogram for malignant neoplasm of breast (principal)
CPT/HCPCS: 77063; 77067

== ENCOUNTER 2025-02-06 09:15 | Day surgery (SDC) | payer OTHER, SELFPAY ==
[2025-02-04 07:53] VITALS: BMI 27.5
--- NOTE | 2025-02-05 10:12 | HO.ANESPROP2 ---
Documented by User: Nara Sarah NP 02/05/25 10:16 HPI - Anesthesia Eval Consult details Narrative: 59yo F for Colonoscopy s/p same 07/2024 with TIVA PMFSH Active Problems Active Problems: All Active Problems Cervical strain (Acute) Left ankle sprain (Acute) Urinary incontinence (Acute) Elevated TSH (Acute) Bilateral hand pain (Acute) Osteopenia (Acute) Physical exam (Acute) Left shoulder pain (Acute) Mild recurrent major depression (Acute) Pelvic pain in female (Acute) Calcium nephrolithiasis (Acute) Urinary urgency (Acute) Constipation by delayed colonic transit (Acute) Macroscopic hematuria (Acute) Cough (Acute) Obesity (Acute) Electrocution and nonfatal effects of electric current (Acute) Fibromyalgia (Acute) Skin lesion (Acute) Bilateral flank pain (Acute) Pain in toe of left foot (Acute) Migraine (Acute) Hypovitaminosis D (Acute) Past Medical History Medical History (Updated 02/06/25 @ 09:53 by Tanya Kaye RN) Osteopenia Left shoulder pain Mild recurrent major depression Class 1 obesity with body mass index (BMI) of 31.0 to 31.9 in adult Pelvic pain in female Urinary urgency Constipation by delayed colonic transit Macroscopic hematuria Cough Obesity Electrocution and nonfatal effects of electric current Fibromyalgia Skin lesion Bilateral flank pain Migraine Hypovitaminosis D Family History Family History Father Prostate cancer Mother No problems noted. Family history of problems with anesthesia: No Surgical History Surgical History (Updated 02/06/25 @ 09:53 by Tanya Kaye RN) H/O colonoscopy History of carpal tunnel release History of section History of hysterectomy History of Problems with Anesthesia: Yes Social History Social History Housing: Apartment Are you a primary post acute care nurse to a significant other at home: No Do you presently have visiting nurse or other home services: No Alcohol intake: never Patient Tobacco Use Status: Never used Tobacco e-Cigarette/Vaping Use: Never Used Second Hand Smoke Exposure: Yes Use of substances other than those prescribed or required for medical reasons: No Are you DNR?: No Advance Directives: No Advance Directives Information Provided: Yes service: No Current occupational status: employed Current occupational exposures/hazards: No Cognitive needs: No Hearing needs: No Vision needs: Yes Meds Allergies Allergy/AdvReac Type Severity Reaction Status Date / Time pregabalin Allergy Intermediate mood Verified 02/06/25 09:50 behavior, blurry vision, dizziness, insomnia sumatriptan Allergy Intermediate nausea Verified 02/06/25 09:50 duloxetine AdvReac Intermediate sleepiness Verified 02/06/25 09:50 Exam Height,Weight and Vital Signs: Height 5 ft 3 in Weight 70.3 kg Pertinent Lab Results Pertinent Lab Results: Laboratory Tests 11/22/24 09:13 WBC 5.6 Hgb 11.9 L Hct 37.2 Plt Count 217 Sodium 142 Potassium 4.2 Chloride 106 Carbon Dioxide 31 H BUN 17 H Creatinine 0.72 Assessment and Plan Assessment Anesthesia Assessment: Chart Reviewed Final Anesthetic Review Family History of Problems with Anesthesia: No History of Problems with Anesthesia: Yes Documented by User: Aramis Momin MD 02/06/25 11:07 PMFSH Past Medical History Medical History (Updated 02/06/25 @ 09:53 by Tanya Kaye, RN) Osteopenia Left shoulder pain Mild recurrent major depression Class 1 obesity with body mass index (BMI) of 31.0 to 31.9 in adult Pelvic pain in female Urinary urgency Constipation by delayed colonic transit Macroscopic hematuria Cough Obesity Electrocution and nonfatal effects of electric current Fibromyalgia Skin lesion Bilateral flank pain Migraine Hypovitaminosis D Family History Family History Father Prostate cancer Mother No problems noted. Surgical History Surgical History (Updated 02/06/25 @ 09:53 by Tanya Kaye, RN) H/O colonoscopy History of carpal tunnel release History of section History of hysterectomy History of Problems with Anesthesia: No Social History Social History Housing: Apartment Are you a primary post acute care nurse to a significant other at home: No Do you presently have visiting nurse or other home services: No Alcohol intake: never Patient Tobacco Use Status: Never used Tobacco e-Cigarette/Vaping Use: Never Used Second Hand Smoke Exposure: Yes Use of substances other than those prescribed or required for medical reasons: No Are you DNR?: No Advance Directives: No Advance Directives Information Provided: Yes service: No Current occupational status: employed Current occupational exposures/hazards: No Cognitive needs: No Hearing needs: No Vision needs: Yes Meds Allergies Allergy/AdvReac Type Severity Reaction Status Date / Time pregabalin Allergy Intermediate mood Verified 02/06/25 09:50 behavior, blurry vision, dizziness, insomnia sumatriptan Allergy Intermediate nausea Verified 02/06/25 09:50 duloxetine AdvReac Intermediate sleepiness Verified 02/06/25 09:50 Exam Airway Mallampati Class: II TM Dist: >3cm Neck ROM: Full Loose/Missing/Broken Teeth: No Heart: ok Lungs: ok Assessment and Plan Assessment Anesthesia Assessment: Anesthesia Plan Discussed Final Anesthetic Review History of Problems with Anesthesia: No NPO: Yes ASA Class: II Final Preanesthetic Review: No Changes in Pt Med Stat, Meds/Allgs Chart Reviewed, Consent Obtained/Reviewed and Anes Risks/Benef Reviewed Patient Risk: Intermediate Procedure Risk: Low Anesthetic Plan Anesthetic Plan: MAC: and Agree w/ Assess. and Plan Disposition: Standard PACU
[2025-02-06 09:53] VITALS: BMI 25.9
[2025-02-06 09:58] VITALS: BP 114/60; PULSE 73; RESP 15; TEMP 36.2; O2SAT 98
[2025-02-06] MEDS: Lactated Ringers 1,000 ML 100 ML IVCONT (10:08)
--- NOTE | 2025-02-06 10:32 | P.HPSUR_ITS ---
Pre-Procedural Eval Section A - 24 Hr Update-Section A only Date of Service: 02/06/25 The patient is an INPATIENT: No The patient has been examined within 24 hours of the surgical procedure. The History & Physical has been completed within 30 days and I have reviewed it.: No Section B - Complete if H&P > 30 days Chief Complaint: screening Relevant Family History (Specify if Yes): No Relevant Social History: None Present Medications: see Short Stay Collaborative assessment Medical History: Significant History (Mild recurrent major depression Class 1 ob esity with body mass index (BMI) of 31.0 to 31.9 in adult Pelvic pain in female Urinary urgency Constipation by delayed colonic transit Macroscopic hematuria Cough Obesity Electrocution and nonfatal effects of electric current Fibromyalgia Skin lesion Bilate) History of Previous Operations: Relevant previous surgery/procedure and date(s) (History of carpal tunnel release History of section History of hysterectomy) Allergies: Allergies Allergy/AdvReac Type Severity Reaction Status Date / Time pregabalin Allergy Intermediate mood Verified 02/06/25 09:50 behavior, blurry vision, dizziness, insomnia sumatriptan Allergy Intermediate nausea Verified 02/06/25 09:50 duloxetine AdvReac Intermediate sleepiness Verified 02/06/25 09:50 Review of Systems Sugical H&P ROS: Negative: Constitution, Cardiovascular, Respiratory and Gastrointestinal Exam Surgical H&P Exam: Normal: Heart, Normal: Lungs, Normal: Extremities and Normal: Abdomen Plan Diagnosis/Plan: Change (proceed with colonoscopy) I have reviewed the history and physical and performed a pertinent physical examination on my patient. No changes have occurred unless specified. Time Spent With Patient Time: Total time managing care of this patient today ____ minutes.
--- NOTE | 2025-02-06 11:54 | P.OPN-COLO_ITS ---
Colonoscopy Operative Note Operative Note Date of Service: 02/06/25 Narrative: COLONOSCOPY TILL CECUM WITH BIOPSIES AND SNARE POLYPECTOMY Pre-op diagnosis: Surveillance for colon polyps. Post-op diagnosis:? Colon polyps, Diverticulosis, hemorrhoids Endoscopist:? Raphael Peterson MD Anesthesia:?MAC Consent: Indications for the procedure and potential complications of bleeding, perforation, reaction to medications and missed diagnosis were discussed with the patient and informed consent was obtained. Instrument: Olympus PCF H 190 L variable stiffness pediatric colonoscope Monitoring: Vital signs and clinical assessment, intermittent blood pressure monitoring, continuous EKG monitoring, Pulse oximetry and Carbon Dioxide monitoring were done throughout the procedure. Please see anesthesia flowsheet. Colon withdrawl time was 11 minutes. Procedure: The patient was placed in the left lateral decubitis position and pre-procedure medications were administered. After a digital rectal examination of the ano-rectum, the video colonoscope was inserted into the rectum and advanced through the colon to the cecum. The colonoscope was slowly withdrawn in a retrograde panoramic fashion and the colon mucosa was carefully examined including a retroflexed view of the rectum. Findings and interventions are described below. Procedure Difficulty: Colon was long and tortuous and there was some loop formation. LLQ pressure was applied to intubate the ascending colon Findings: Terminal Ileum: Not evaluated Cecum: A 7-8 mm polyp/fold adjacent to past polypectomy site - removed with a hot snare. A 3-4 mm sessile polyp adjacent to the polypectomy site - removed with a cold biopsy. Ascending Colon: Normal Transverse Colon: Normal Descending Colon: Normal Sigmoid Colon: Moderate diverticulosis Rectum: Normal Ano-rectum: Moderate internal hemorrhoids and perianal skin tags Colon preparation: Good after some irrigation. [place] Bowel Preparation Scale Right colon; 2 Transverse colon: 2 Left colon; 2 (0 = Unprepared colon segment with mucosa not seen due to solid stool that cannot be cleared. 1 = Portion of mucosa of the colon segment seen, but other areas of the colon segment not well seen due to staining, residual stool and/or opaque liquid. 2 = Minor amount of residual staining, small fragments of stool and/or opaque liquid, but mucosa of colon segment seen well. 3 = Entire mucosa of colon segment seen well with no residual staining, small fragments of stool or opaque liquid) Impression and Post Procedure Diagnosis: Colonoscopy Findings: Two small polyps (adjacent to past polypectomy site in the cecum) were removed Moderate diverticulosis seen in the sigmoid colon Moderate hemorrhoids on retroflexed exam. Plan: I will send a letter with biopsy results. Repeat colonoscopy in 3 years if polyps are adenomatous and due to history of adenomatous colon polyps (Adult colonoscope for future colonoscopies) Above findings were reviewed with the patient and relevant handouts were given and the discharge area.
[2025-02-06 12:00] VITALS: BP 117/71; PULSE 89; RESP 18; TEMP 36.1; O2SAT 98
[2025-02-06 12:21] VITALS: BP 119/69; PULSE 63; RESP 18; TEMP 36.2; O2SAT 98
== END 2025-02-06 12:47 | disposition home or self-care (01) ==
PROVIDERS: PCP Internal Medicine; Visit Provider Internal Medicine Gastroenterology
PROC: 0DJD8ZZ Inspection of Lower Intestinal Tract, Via Natural or Artificial Opening Endoscopic (ICD-10-PCS; CPT 45378; principal; 2025-02-06 11:10)
DX: Z12.11 Encounter for screening for malignant neoplasm of colon (principal); Z86.0101 Personal history of adenomatous and serrated colon polyps; D12.0 Benign neoplasm of cecum; K57.30 Diverticulosis of large intestine without perforation or abscess without bleeding; K64.8 Other hemorrhoids; K64.4 Residual hemorrhoidal skin tags; K59.01 Slow transit constipation; R10.2 Pelvic and perineal pain; R39.15 Urgency of urination; R31.29 Other microscopic hematuria; M79.7 Fibromyalgia; F33.0 Major depressive disorder, recurrent, mild; E66.811 Obesity, class 1; Z68.31 Body mass index [BMI] 31.0-31.9, adult; Z88.8 Allergy status to other drugs, medicaments and biological substances
CPT/HCPCS: 45385; 45380; 88305; J2003; J2704

== ENCOUNTER → 2025-02-06 09:15 | Outpatient (BNV) | payer OTHER, SELFPAY | PROVIDERS: PCP Internal Medicine; Visit Provider Internal Medicine Gastroenterology | DX: Z12.11 Encounter for screening for malignant neoplasm of colon (principal); D12.0 Benign neoplasm of cecum; K57.30 Diverticulosis of large intestine without perforation or abscess without bleeding; K64.8 Other hemorrhoids; K64.4 Residual hemorrhoidal skin tags | CPT/HCPCS: 45385 ==

== ENCOUNTER 2025-02-10 10:07 | Outpatient (REF) | payer OTHER, SELFPAY ==
--- NOTE | ~2025-02-10 | XR_ITS ---
EXAMINATION: XR CERVICAL SPINE 2-3 VIEWS HISTORY: M54.2 - Cervicalgia COMPARISON: There are no prior studies available for comparison. FINDINGS: AP, lateral, and open-mouth odontoid views of the cervical spine are submitted. Osseous mineralization is normal. Seven cervical vertebral bodies are identified maintaining normal height without evidence of fracture. There is straightening of the normal cervical lordosis and minimal anterolisthesis of C4 on C5. There is mild degenerative disc disease at the C5-6 and C6-7 levels with disc space narrowing and osteophyte formation. The odontoid and lateral masses of C1 are intact. There is no prevertebral soft tissue swelling. XR/XR cervical spine 3V IMPRESSION: Straightening of the normal cervical lordosis. Slight anterolisthesis of C4 on C5. Degenerative changes at C5-6 and C6-7 as described. Electronically signed by: Wander Jim MD 02/10/2025 11:01 AM EDT
== END 2025-02-10 10:08 | disposition home or self-care (01) ==
LOC: HO.HMGCX 10:07
PROVIDERS: PCP Internal Medicine; Visit Provider Physician Assistant Medical
DX: M54.2 Cervicalgia (principal)
CPT/HCPCS: 72040; 99212

== ENCOUNTER 2025-02-10 10:07 | Outpatient (AMB) | payer OTHER, SELFPAY ==
[2025-02-10 10:23] VITALS: BP 138/80; PULSE 92; TEMP 36.8; O2SAT 97; BMI 26.4
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
== END 2025-02-10 10:56 | disposition home or self-care (01) ==
PROVIDERS: PCP Internal Medicine; Visit Provider Physician Assistant Medical
DX: M54.2 Cervicalgia (principal)

== ENCOUNTER → 2025-02-10 10:48 | Outpatient (BNV) | payer OTHER, SELFPAY | PROVIDERS: PCP Internal Medicine; Visit Provider Radiology Diagnostic Radiology | DX: M50.322 Other cervical disc degeneration at C5-C6 level (principal) | CPT/HCPCS: 72040 ==

== ENCOUNTER 2025-03-31 13:14 | Outpatient (AMB) | payer OTHER, SELFPAY ==
--- NOTE | 2025-03-31 13:20 | MHC.OFFVIS ---
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 Education Professor Required: No Accompanied by: Self / Same As Patient Allergies pregabalin Allergy (Intermediate, Verified 03/31/25 13:38) mood behavior, blurry vision, dizziness, insomnia sumatriptan Allergy (Intermediate, Verified 03/31/25 13:38) nausea duloxetine Adverse Reaction (Intermediate, Verified 03/31/25 13:38) sleepiness Medication List - Last Reconciled 03/31/25 by ANIL Mccoy- cholecalciferol (vitamin D3) 25 mcg PO DAILY 90 days cyclobenzaprine 5 mg PO Q8H PRN gabapentin 600 mg PO BEDTIME 90 days gabapentin 400 mg PO .every morning lidocaine 5% 1 patch topical DAILY loratadine 10 mg PO DAILY 90 days naproxen 500 mg PO Q12H PRN 7 days topiramate 25 mg PO BEDTIME 30 days HPI Comments Details: Leanne is a 58-year-old female patient of Dr. Peter Ortiz. She has a past medical history of obesity, constipation, fibromyalgia, migraines, and depression. She presents to the office today for follow-up of her nephrolithiasis as well as lower urinary tract symptoms. In discussion with the patient today she denies having had any bothersome urinary issues or concerns since her last office visit here. She reports she had previously been feeling dysuria and low urine output however took [id number] azo and felt symptoms significantly improved. She denies since then she has had no bothersome urinary issues or concerns. She reports she has been increasing her water intake and feels this has been extremely helpful. Previous workup has included a retroperitoneal ultrasound 05/25 bilateral kidneys with no hydronephrosis or renal calculi. The bladder is well distended. Pre void bladder volume is approximately 300 ml and postvoid bladder volume is approximately 40 mL. We discussed at length potential causes of lower urinary tract symptoms patient had previously been experiencing. She currently denies urinary urgency, urinary frequency, incontinence, nocturia, hematuria, dysuria, foul smelling urine, changes to urinary stream, flank pain, fever, and or chills. She is happy with her current voiding parameters. In office urinalysis results reviewed with the patient today. All questions were answered. PVR 0 mL. She otherwise offers no other issues or concerns at this time. [facility] Medical History Osteopenia Left shoulder pain Mild recurrent major depression Class 1 obesity with body mass index (BMI) of 31.0 to 31.9 in adult Pelvic pain in female Urinary urgency Constipation by delayed colonic transit Macroscopic hematuria Cough Obesity Electrocution and nonfatal effects of electric current Fibromyalgia Skin lesion Bilateral flank pain Migraine Hypovitaminosis D Surgical History (Updated 02/06/25 @ 09:53 by Tanya Kaye RN) H/O colonoscopy History of carpal tunnel release History of section History of hysterectomy Family History Father Prostate cancer Mother No problems noted. Social History Housing: Apartment Are you a primary transition of care specialist to a significant other at home: No Do you presently have visiting nurse or other home services: No Alcohol intake: never Patient Tobacco Use Status: Never used Tobacco e-Cigarette/Vaping Use: Never Used Second Hand Smoke Exposure: Yes service: No Current occupational status: employed Current occupational exposures/hazards: No Cognitive needs: No Hearing needs: No Vision needs: Yes Review of Systems Const Reports as per HPI Eyes Reports no additional complaints ENT Reports no additional complaints Card Reports no additional complaints Resp Reports no additional complaints GI Reports as per HPI Reports as per HPI Musc Reports as per HPI Neuro Reports as per HPI Psych Reports as per HPI Endo Reports no additional complaints Physical Exam Const General: cooperative, healthy appearing, comfortable, no acute distress, well developed, alert and awake Orientation/consciousness: patient oriented x3 Limitations: no limitations HEENT Head: Yes normal to inspection, Yes normocephalic and Yes atraumatic Ears: hearing grossly normal bilaterally Eyes General: appearance normal, both eyes and all related structures Neck Neck: Yes normal visual inspection and Yes trachea midline Chest Chest palpation & inspection: normal inspection of the chest Resp Effort & Inspection: normal respiratory effort and able to speak in complete sentences Cardio Rate: regular rate GI Inspection: Yes normal to inspection General: Yes no CVA tenderness Back/Spine/Pelvis Back: no CVA tenderness Skin General skin exam: no rashes or lesions noted Neuro General: patient oriented x3 Extrem General: Yes normal to inspection Psych Appearance: grossly normal and well kempt Mental Status: mental status grossly normal Speech and movement: Clear speech present Affect: normal affect Attitude: cooperative Thought process: Normal thought process present Thought content: Normal thought content present Insight: Fair insight present (Psych) Judgement: Fair judgement present (Psych) Office Procedures Post Void Residual Post Residual Void Post Void Residual (PVR): 0 [id number] Void Residual by ultrasound Results AMB Urinalysis, Automated UA Leukoctes 0 Colin/uL Last Edit by DARRION Rasheed on 03/31/25 13:39 UA Nitrite Last Edit by Leticia Rivera CCM on 03/31/25 13:39 UA Urobilinogen 0.2 mg/dL Last Edit by DARRION Rasheed on 03/31/25 13:39 UA Protein 0 mg/dL Last Edit by Leticia Rivera CCM on 03/31/25 13:39 UA pH 7.0 Last Edit by Leticia Rivera CCM on 03/31/25 13:39 UA Blood 0 Arthur/uL Last Edit by Leticia Rivera CCM on 03/31/25 13:39 UA Specific [place] 1.010 Last Edit by DARRION Rasheed on 03/31/25 13:39 UA Ketone Last Edit by Leticia Rivera CCM on 03/31/25 13:39 UA Bilirubin 0 mg/dL Last Edit by Leticia Rivera CCM on 03/31/25 13:39 UA Glucose 0 mg/dL Last Edit by Leticia Rivera [facility] on 03/31/25 13:39 Results Reviewed Results Reviewed: Laboratory Last Values Urine pH (Auto) 7.0 03/31/25 13:38 Specific [place] (Auto) 1.010 03/31/25 13:38 Urine Protein (Auto) 0 mg/dL 03/31/25 13:38 Glucose (UA)(Auto) 0 mg/dL 03/31/25 13:38 Urine Blood (Auto) 0 Arthur/uL 03/31/25 13:38 Urine Bilirubin (Auto) 0 mg/dL 03/31/25 13:38 Urine Urobilinogen (Auto) 0.2 mg/dL 03/31/25 13:38 Leukocyte Esterase (Auto) 0 Colin/uL 03/31/25 13:38 Assessment & Plan Assessment & Plan (1) Calcium nephrolithiasis: Code(s): N20.0 - Calculus of kidney Category: Medical (2) Lower urinary tract symptoms: Code(s): R39.9 - Unspecified symptoms and signs involving the genitourinary system Category: Medical Plan In office urinalysis results with the patient today; as noted above. She currently denies any bothersome urinary issues or concerns. She reports be happy with current voiding parameters. We did discuss the importance of adequate hydration relation to lower urinary tract symptoms, nephrolithiasis, and overall health and well-being. PVR 0 mL. Will continue with surveillance monitoring. Will obtain renal ultrasound in 6 months Follow-up in 6 months with imaging; or sooner with any issues, concerns, and or questions. Orders: Orders AMB Urinalysis Automated Today Z13.9 - Encounter for screening, unspecified AMB Post Void Residual by ultrasound Today R32 - Unspecified urinary incontinence US renal BI 6 Months N20.0 - Calculus of kidney Patient Instructions: The patient had an opportunity to ask questions regarding the treatment plan. All questions were answered. Physical exam, labs, and imaging were discussed and reviewed in detail. As well as risks, benefits, and discussion of treatment choices. No major barriers to understanding were identified. The patient expressed understanding and agreement with the above treatment plan. The patient was made aware they should contact our office by phone for worsening of their current condition, the appearance of new symptoms, or with any questions or concerns. Compliance is encouraged with any medications and follow up testing that is ordered. It is a privilege to be allowed the opportunity to participate in? your urological care.? Again, if you have any questions or concerns If you have any questions or concerns please do not hesitate to contact me. The office is [phone]. This note is constructed using voice recognition software. While every effort has been made to ensure accuracy reimbursement representative errors may have been included. Yours sincerely, VALENTE Mccoy Coding Level of Care Code Est Pt Level 3 (38059) Diagnoses Calcium nephrolithiasis N20.0 Lower urinary tract symptoms R39.9 CPT Codes Post Residual Void - PVR CPT Code: 73677-Hrec Void Residual by ultrasound ([id number])
== END 2025-03-31 13:59 | disposition home or self-care (01) ==
LOC: HO.HUSH 13:15
PROVIDERS: PCP Internal Medicine; Visit Provider Nurse Practitioner Family
DX: N20.0 Calculus of kidney (principal); R39.9 Unspecified symptoms and signs involving the genitourinary system; Z13.9 Encounter for screening, unspecified
CPT/HCPCS: 99213

== ENCOUNTER → 2025-03-31 13:14 | Outpatient (BNVA) | payer OTHER, SELFPAY | PROVIDERS: PCP Internal Medicine; Visit Provider Nurse Practitioner Family | DX: N20.0 Calculus of kidney (principal); R39.9 Unspecified symptoms and signs involving the genitourinary system | CPT/HCPCS: 51798; 81003; 99212 ==

== ENCOUNTER 2025-05-25 09:45 | Outpatient (REF) | payer OTHER, SELFPAY ==
--- NOTE | ~2025-05-25 | XR_ITS ---
EXAMINATION: XR HIP, LEFT CLINICAL INFORMATION: M25.552 - Pain in left hip COMPARISON: January 21, 2014 TECHNIQUE: AP and frog-leg lateral views of the left hip. FINDINGS: Left hip Joint space is preserved. There is a small osteophyte involving acetabular roof. No fracture is identified. The left SI joint is unremarkable. XR/XR hip LT min 2V IMPRESSION: Minimal left hip degenerative change. Electronically signed by: Papito Geiger MD 05/25/2025 11:44 AM MONY WRIGHT
== END 2025-05-25 09:46 | disposition home or self-care (01) ==
LOC: HO.XRAY 09:45
PROVIDERS: PCP Internal Medicine; Visit Provider Internal Medicine
DX: M25.552 Pain in left hip (principal); G43.909 Migraine, unspecified, not intractable, without status migrainosus; M79.7 Fibromyalgia; R10.9 Unspecified abdominal pain; F33.0 Major depressive disorder, recurrent, mild; E78.5 Hyperlipidemia, unspecified; E55.9 Vitamin D deficiency, unspecified
CPT/HCPCS: 73502; 96127

== ENCOUNTER 2025-05-25 09:45 | Outpatient (AMB) | payer OTHER, SELFPAY ==
[2025-05-25 10:14] VITALS: BP 110/64; PULSE 75; RESP 18; O2SAT 100; BMI 27.3
--- NOTE | 2025-05-25 10:14 | MHC.PC.OV ---
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 Required: No Accompanied by: Self / Same As Patient Allergies pregabalin Allergy (Intermediate, Verified 05/25/25 10:29) mood behavior, blurry vision, dizziness, insomnia sumatriptan Allergy (Intermediate, Verified 05/25/25 10:29) nausea duloxetine Adverse Reaction (Intermediate, Verified 05/25/25 10:29) sleepiness Medication List - Last Reconciled 05/25/25 by Sarah Ortiz MD cholecalciferol (vitamin D3) 25 mcg PO DAILY 90 days cyclobenzaprine 5 mg PO Q8H PRN gabapentin 600 mg PO BEDTIME 90 days gabapentin 400 mg PO .every morning lidocaine 5% 1 patch topical DAILY loratadine 10 mg PO DAILY 90 days naproxen 500 mg PO Q12H PRN 7 days topiramate 25 mg PO BEDTIME 30 days Tobacco use date assessed: 05/25/25 Dental Screening Dental Screen Date: 05/25/25 Did you have a dental visit in the last 12 months?: Yes Did you have a dental problem in the last 6 months where you did not have access to dental care?: No Was dental information given to patient?: Patient has dentist HPI HPI Comments History of Present Illness Details The patient is a 59 year old individual presenting for a follow-up visit for management of chronic conditions, including fibromyalgia and migraine. The patient reports an increase in pain. Current medications include gabapentin 400 mg in the morning and a 600 mg dose at night, lidocaine, naproxen, and loratadine. The patient also has a prescription for Topamax for migraine prevention but reports not having received it. The patient reports having attended physical therapy, where the patient was taught exercises to do at home. The patient performs them intermittently, about a couple of times a week, and particularly enjoys the heat and massage treatments. She complains of left hip pain and locking and x-ray will be ordered. The patient had a colonoscopy in January where a polyp was found. Pathology identified it as a tubular adenoma, which was negative for carcinoma. Other findings on the colonoscopy included diverticulosis and hemorrhoids. The procedure was performed by Dr. Peterson, but the patient was not given a follow-up appointment. She has abdominal pain and would like to see Gastroenterology. [facility] Medical History (Updated 05/25/25 @ 10:48 by Sarah Ortiz MD) Osteopenia Left shoulder pain Mild recurrent major depression Class 1 obesity with body mass index (BMI) of 31.0 to 31.9 in adult Pelvic pain in female Urinary urgency Constipation by delayed colonic transit Macroscopic hematuria Cough Obesity Electrocution and nonfatal effects of electric current Fibromyalgia Skin lesion Bilateral flank pain Migraine Hypovitaminosis D Surgical History H/O colonoscopy History of carpal tunnel release History of section History of hysterectomy Family History Father Prostate cancer Mother No problems noted. Social History Housing: Apartment Are you a primary manager of care to a significant other at home: No Do you presently have visiting nurse or other home services: No Alcohol intake: never Patient Tobacco Use Status: Never used Tobacco e-Cigarette/Vaping Use: Never Used Second Hand Smoke Exposure: Yes service: No Current occupational status: employed Current occupational exposures/hazards: No Cognitive needs: No Hearing needs: No Vision needs: Yes Questionnaire PHQ-9 Over the last 2 weeks, how often have you been bothered by any of the following problems? 1. Little interest or pleasure in doing things: several days 2. Feeling down, depressed, or hopeless: several days 3. Trouble falling or staying asleep, or sleeping too much: not at all 4. Feeling tired or having little energy: several days 5. Poor appetite or overeating: several days 6. Feeling bad about yourself - or that you are a failure or have let yourself or your family down: not at all 7. Trouble concentrating on things, such as reading the newspaper or watching television: not at all 8. Moving or speaking so slowly that other people could have noticed. Or the opposite - being so fidgety or restless that you have been moving around a lot more than usual: not at all 9. Thoughts that you would be better off or of hurting yourself in some way: not at all Total score: 4 Depression Screening Interpretation: Positive Depression Screening Follow-up: Existing condition, In treatment and Follow-up Visit Requested Depression Screening Done: Yes 04495 - PHQ-9 Billing: Yes Source: Developed by Drs. Wander Arnold, Samara Mayer, Rudolph Lovelace and colleagues, with an educational marsha from [employer]. Thrive Questionnaire Date Thrive assessed: 05/25/25 I am a: Patient What is your living situation today?: I have a steady place to live Within the past 12 months, did the food you bought not last and you didn't have the money to get more?: Sometimes True Within the past 12 months, did you worry whether your food would run out before you got money to buy more?: Sometimes True Do you have trouble paying for medicines?: No Do you have trouble getting transportation to medical appointments?: No Do you have trouble paying your heating and electricity bill?: Yes Do you have trouble taking care of your child, family member or friend?: No Do you have trouble with day-to-day activities such as bathing, preparing meals, shopping, managing finances, etc.?: No Are you currently unemployed and looking for a job?: No Are you interested in more education?: No Currently or been in a relationship where the following occur: No concerns reported THRIVE Score: 3 AUDIT C Alcohol Use Questionnaire (AUDIT-C) 1. How often do you have a drink containing alcohol?: Never Total Score: 0 Score Reviewed/Action Taken: No KUMAR-7 AMB Questionnaire KUMAR-7 Date KUMAR - 7 assessed: 11/10/24 Feeling nervous, anxious, or on edge: 1 = Several days Not being able to stop or control worryin = Not at all Worrying too much about different things: 1 = Several days Trouble relaxin = Several days Being so restless that it is hard to sit still: 0 = Not at all Becoming easily annoyed or irritable: 0 = Not at all Feeling afraid as if something awful might happen: 0 = Not at all Total KUMAR-7 score (0-4 normal; 5-9 mild; 10-14 moderate; 15-21 severe): 3 Source: Developed by Drs. Wander Arnold, Samara Mayer, Rudolph Lovelace and colleagues, with an educational marsha from [employer]. KUMAR-7 Assessment Billing KUMAR-7 Assessment Tool: KUMAR-7 Assessment 33406 Review of Systems Const All systems reviewed & are unremarkable except as noted in HPI and below Card Denies chest pain at rest, Denies chest pain with activity, Denies edema, Denies irregular heart rhythm, Denies claudication, Denies dyspnea, Denies dyspnea on exertion, Denies orthopnea, Denies paroxysmal nocturnal dyspnea and Denies slow heart rate Resp Denies cough, Denies dyspnea and Denies dyspnea on exertion GI Denies abdominal pain, Denies change in bowel habits, Denies excessive flatus, Denies nausea and Denies vomiting Denies urinary incontinence, Denies urinary hesitancy and Denies urinary urgency Physical exam (Primary Care) Vital Signs: Last Vital Signs Pulse 75 05/25/25 10:14 Resp 18 05/25/25 10:14 BP 110/64 05/25/25 10:14 Pulse Ox 100 05/25/25 10:14 Oxygen Delivery Method Room Air 05/25/25 10:14 BMI result Body Mass Index 27.3 Tobacco/Smoking Status: Tobacco use Status Tobacco use date assessed 05/25/25 05/25/25 10:21 Patient Tobacco Use Status Never used Tobacco 05/25/25 10:21 e-Cigarette/Vaping Use Never Used 05/25/25 10:21 PHQ-9: PHQ-9 Score PHQ-9: Total score 4 05/25/25 10:21 Depression Screening Interpretation: Positive Depression Screening Follow-up: Existing condition, In treatment and Follow-up Visit Requested Thrive Assessment: Date of Thrive Assessment Date Thrive assessed 05/25/25 05/25/25 10:21 Currently or been in a relationship where the following occur: No concerns reported Resp Effort & Inspection: normal respiratory effort Auscultation: clear to auscultation bilaterally Cardio Jugular venous distension: no JVD Rate: regular rate Rhythm: regular rhythm Heart sounds: S1 normal heart sound present and S2 normal heart sound present Extrem General: Yes full ROM Coding Level of Care Code Complex visit Add On G2211 Diagnoses Left hip pain M25.552 Abdominal pain R10.9 Migraine without status migrainosus, not intractable, unspecified migraine type G43.909 Migraine type: unspecified Status migrainosus presence: without status migrainosus Intractability: not intractable Fibromyalgia M79.7 Mild recurrent major depression F33.0 Additional Codes KUMAR-7 Assessment Billing - KUMAR-7 Assessment Tool: KUMAR-7 Assessment 17955 ([id number]) PHQ-9 - 29175 - PHQ-9 Billing: Yes ([id number]) Time Spent (min) 22 Assessment & Plan Assessment & Plan (1) Left hip pain: Code(s): M25.552 - Pain in left hip Category: Medical (2) Abdominal pain: Code(s): R10.9 - Unspecified abdominal pain Category: Medical (3) Migraine: Code(s): G43.909 - Migraine, unspecified, not intractable, without status migrainosus Category: Medical Qualifiers: Migraine type: unspecified Status migrainosus presence: without status migrainosus Intractability: not intractable Qualified Code(s): G43.909 - Migraine, unspecified, not intractable, without status migrainosus (4) Fibromyalgia: Code(s): M79.7 - Fibromyalgia Category: Medical (5) Mild recurrent major depression: Code(s): F33.0 - Major depressive disorder, recurrent, mild Category: Medical Plan Plan 1. Fibromyalgia A hip x-ray will be ordered to further evaluate the patient's pain. The patient is encouraged to continue home exercises as learned in physical therapy. 2. Migraine The patient will continue the current medication regimen, which includes Topamax for migraine prevention. 3. History Of Colon Polyp/abdominal pain The patient was educated that the finding of a tubular adenoma indicates a need for surveillance colonoscopy in 3 to 5 years, not annually. A referral was offered to gastroenterology for a second opinion, and a follow-up appointment will be scheduled with the patient's previous manager fiber, Dr. Peterson, for further discussion. 4. Left hip pain X-ray ordered. Orders: Orders XR hip LT min 2V Today M25.552 - Pain in left hip Lipid Panel 6 Months E78.5 - Hyperlipidemia, unspecified Vitamin D 25-OH Total 6 Months E55.9 - Vitamin D deficiency, unspecified Comprehensive [place]. Panel Fast 6 Months M25.552 - Pain in left hip Referrals Gastroenterology Referral R10.9 - Unspecified abdominal pain Medications: New sennosides (senna) 8.6 mg PO BEDTIME PRN 30 tabs 0RF constipation 30 days Changed From gabapentin 400 mg PO .every morning To gabapentin 400 mg PO .every morning 90 caps 0RF 90 days Refilled gabapentin 600 mg PO BEDTIME 90 tabs 1RF 90 days topiramate 25 mg PO BEDTIME 30 caps 2RF 30 days loratadine 10 mg PO DAILY 90 tabs 1RF 90 days cholecalciferol (vitamin D3) 25 mcg PO DAILY 90 caps 3RF 90 days E55.9 - Vitamin D deficiency, unspecified
== END 2025-05-25 10:52 | disposition home or self-care (01) ==
LOC: HO.HMCH 09:46
PROVIDERS: PCP Internal Medicine; Visit Provider Internal Medicine
DX: M25.552 Pain in left hip (principal); R10.9 Unspecified abdominal pain; G43.909 Migraine, unspecified, not intractable, without status migrainosus; M79.7 Fibromyalgia; F33.0 Major depressive disorder, recurrent, mild

== ENCOUNTER → 2025-05-25 11:07 | Outpatient (BNV) | payer OTHER, SELFPAY | PROVIDERS: PCP Internal Medicine; Visit Provider Radiology Diagnostic Radiology | DX: M17.12 Unilateral primary osteoarthritis, left knee (principal) | CPT/HCPCS: 73502 ==